=== PATIENT | female | born 2005 | race Caucasian/White ===

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

== ENCOUNTER 2023-02-02 12:39 | Emergency (ER) | payer OTHER, MEDICAID, SELFPAY ==
[2023-02-02 12:57] VITALS: BP 113/65; PULSE 73; RESP 16; TEMP 36.6; O2SAT 100
--- NOTE | 2023-02-04 19:20 | ED.FEMALEGU ---
HPI - Female Genitourinary General Chief complaint: Urogenital-Female Stated complaint: Female Urogenital Time Seen by Provider: 02/02/23 13:00 Source: patient Mode of arrival: ambulatory Limitations: no limitations History of Present Illness HPI Narrative: 17 yo F presents with c/o urinary urgency, frequency, dysuria for 2 days. Afebrile. No back or ABD pain. Also reports mild nausea. concerned for UTI. All systems reviewed and negative except as noted above. Related Data Home Medications Medication Instructions Recorded Confirmed desogestrel 0.15 mg-ethinyl 1 tablet PO DAILY 07/02/20 02/02/23 estradiol 0.03 mg tablet (Isibloom) dextroamphetamine-amphetamine ER 25 mg PO DAILY 07/02/20 02/02/23 25 mg capsule,3 bead,ext release 24hr (Mydayis) paliperidone 1.5 mg 1.5 mg PO DAILY 07/10/20 02/02/23 tablet,extended release 24 hr aripiprazole 5 mg tablet 5 mg PO DAILY 01/17/21 02/02/23 bupropion HCl 100 mg tablet,12 hr 100 mg PO DAILY 01/17/21 02/02/23 sustained-release Allergies Allergy/AdvReac Type Severity Reaction Status Date / Time cefdinir AdvReac Intermediate Diarrhea Verified 02/02/23 12:45 Review of Systems Review of Systems: CONSTITUTIONAL: Denies fever, chills, or sweats. EYES: Denies visual changes, redness, or discharge. ENT: Denies rhinorrhea, congestion, sore throat, or otalgia. CARDIOVASCULAR: Denies chest pain, palpitations, or edema. RESPIRATORY: Denies cough or dyspnea. GASTROINTESTINAL: Denies abdominal pain, nausea, vomiting, or diarrhea. GENITOURINARY: reports dysuria, urgency, frequency. Denies hematuria. SKIN: Denies rash or itching. MUSCULOSKELETAL: Denies back pain, joint pain, or myalgia. NEUROLOGIC: Denies headache, numbness, or weakness. PSYCHIATRIC: Denies anxiety or depression. All other systems reviewed are negative, except as documented in HPI. [facility] Past Medical History Medical History Outbursts of anger Social History Social History Smoking status: Never smoker Substance use type: marijuana, sedatives and club/data designer drugs Comments At time of signature, agree with nursing past medical, surgical, social and family history. There is no relevant family history pertinent to the presenting complaint. Exam Narrative: GENERAL: This is a well-nourished, well-developed patient, in no apparent distress. HEAD: normocephalic, atraumatic. EYES: PERRL. Sclera clear/white. Vision is grossly intact. EARS: External ears normal NOSE: External nose normal NECK: Neck supple, non-tender without lymphadenopathy, masses or thyromegaly. CARDIOVASCULAR: Regular rate and rhythm without murmurs, gallops, or rubs. RESPIRATORY: Clear to auscultation. Breath sounds equal bilaterally. No wheezes, rales, or rhonchi. SKIN: warm, Dry, intact with no suspicious lesions or rash, good texture and turgor. NEURO: awake, alert, and oriented to person, place and time. There were no obvious focal neurologic abnormalities. EXTREMITIES: No joint tenderness, effusion, or edema noted. Course Course Level of Care: Express Care Visit Vital Signs Vital signs: Vital Signs Temperature 36.6 C 02/02/23 12:57 Pulse Rate 73 02/02/23 12:57 Respiratory Rate 16 02/02/23 12:57 Blood Pressure 113/65 02/02/23 12:57 Pulse Oximetry 100 02/02/23 12:57 Oxygen Delivery Room Air 02/02/23 12:57 Temperature 36.6 C 02/02/23 12:57 Pulse Rate 73 02/02/23 12:57 Respiratory Rate 16 02/02/23 12:57 Blood Pressure 113/65 02/02/23 12:57 Pulse Oximetry 100 02/02/23 12:57 Oxygen Delivery Room Air 02/02/23 12:57 reviewed MDM - Female Genitourinary MDM Narrative Medical decision making narrative: Patient is aware of diagnosis, understands and agrees to treatment plan. Anticipatory guidance given. Patient agrees to follow-up as directed and is aware of
== END 2023-02-02 13:16 | disposition home or self-care (01) ==
PROVIDERS: Emergency Provider Nurse Practitioner Family
DX: N39.0 Urinary tract infection, site not specified (principal); B96.20 Unspecified Escherichia coli [E. coli] as the cause of diseases classified elsewhere; F12.90 Cannabis use, unspecified, uncomplicated; F13.90 Sedative, hypnotic, or anxiolytic use, unspecified, uncomplicated
CPT/HCPCS: 81003; 87077; 87086; 87186; 99213; G0463

== ENCOUNTER 2023-07-19 08:02 | Emergency (ER) | payer OTHER, SELFPAY ==
--- NOTE | 2023-07-19 08:09 | ED.FEMALEGU ---
HPI - Female Genitourinary General Chief complaint: Urogenital-Female Stated complaint: uti symptoms Time Seen by Provider: 07/19/23 08:25 Source: patient, RN notes reviewed and old records reviewed Mode of arrival: ambulatory Limitations: no limitations History of Present Illness HPI Narrative: 18 Old female presents to the [facility] with concerns for a UTI. Patient reports left lower back discomfort, intermittent nausea, urgency with urination, feeling like she cannot empty her bladder. Last menstrual period was 2 weeks ago, no concerns for . Patient denies any concerns for STDs. Symptoms started yesterday. Denies fevers, abdominal pain Onset (ago): day(s) (1) Related Data Home Medications Medication Instructions Recorded Confirmed desogestrel 0.15 mg-ethinyl 1 tablet PO DAILY 07/02/20 07/19/23 estradiol 0.03 mg tablet (Isibloom) bupropion HCl 100 mg tablet,12 hr 100 mg PO DAILY 01/17/21 07/19/23 sustained-release paliperidone 1.5 mg 1.5 mg PO DAILY 07/19/23 07/19/23 tablet,extended release 24 hr Allergies Allergy/AdvReac Type Severity Reaction Status Date / Time cefdinir AdvReac Intermediate Diarrhea Verified 07/19/23 08:13 Review of Systems Review of Systems: All systems reviewed & are unremarkable except as noted in HPI and below Constitutional: Constitutional: Reports no additional constitutional complaints Eyes: Eyes: Reports no additional eye complaints ENT: Reports system reviewed and no additional complaints, except as documented Cardiovascular: Cardiovascular: Reports no additional cardiovascular complaints, Denies chest pain and Denies dyspnea Respiratory: Respiratory: Reports no additional respiratory complaints, Denies chest congestion, Denies cough and Denies dyspnea Gastrointestinal: Gastrointestinal: Reports no additional gastrointestinal complaints, Denies abdominal pain, Denies nausea and Denies vomiting Genitourinary: Genitourinary: Reports as per HPI and Reports dysuria Musculoskeletal: Musculoskeletal: Reports no additional musculoskeletal complaints Integumentary/Breasts: Skin/Breast: Reports system reviewed and no additional complaints, except as docu Neurologic: Reports system reviewed and no additional complaints, except as documented Psychiatric: Psychiatric: Reports no additional psychiatric complaints Allergic/Immunologic: Allergic/Immunologic: Reports no additional allergic/immunologic complaints PMFSH Past Medical History Medical History Outbursts of anger Social History Social History Smoking status: Never smoker Substance use type: marijuana, sedatives and club/kitchen and bath designer drugs Comments At the time of my signature, I reviewed and agree with the nursing past medical, surgical, social, and family history. There is no relevant family history pertinent to the patient complaint. Exam Const: General: cooperative, healthy appearing, comfortable, no acute distress, well developed, alert and well nourished Nutritional Appearance: well nourished Orientation/consciousness: patient oriented x3 Limitations: no limitations HENMT: Head: normal to inspection Ears: hearing grossly normal bilaterally and external ears normal Face/Nose/Sinus: Normal external nose present, Normal nares present, Normal nasal mucous membranes and turbinates present, normal facial exam and face symmetric Face and sinus: normal facial exam and face symmetric Eyes: General: appearance normal, both eyes and all related structures Alignment and Position: alignment normal Periorbital: periorbital findings normal Pupils: Equal, round and reactive pupils present EOM: EOMs intact bilaterally Neck: Neck: normal visual inspection, full ROM, no lymphadenopathy and no meningeal signs Chest: Chest palpation & inspection: normal inspection of the chest Resp: Effort & Inspection: no
[2023-07-19 08:22] VITALS: BP 108/57; PULSE 91; RESP 16; TEMP 37.5; O2SAT 100
== END 2023-07-19 08:40 | disposition home or self-care (01) ==
PROVIDERS: Emergency Provider Nurse Practitioner
DX: N39.0 Urinary tract infection, site not specified (principal); B96.20 Unspecified Escherichia coli [E. coli] as the cause of diseases classified elsewhere
CPT/HCPCS: 81003; 87077; 87086; 87186; 99213; G0463

== ENCOUNTER 2024-02-15 09:49 | Emergency (ER) | payer OTHER, SELFPAY ==
--- NOTE | 2024-02-15 09:52 | ED_ITS ---
HPI - Psych General Chief Complaint: Psychiatric Symptoms Stated Complaint: si/hi statements after argument Time Seen by Provider: 02/15/24 09:51 History of Present Illness HPI Narrative: Patient has history of bipolar disorder, has been off her meds since May, and had an argument with her family earlier today resulting her making statements about wanting the kill herself, take a gun and shoot someone. She has no denying any SI or HI and states It was just in the heat of the moment. No access to guns. denies any other complaints. Related Data Home Medications Medication Instructions Recorded Confirmed bupropion HCl 100 mg tablet,12 hr 100 mg PO DAILY 01/17/21 02/15/24 sustained-release aripiprazole 10 mg tablet 10 mg PO DAILY 02/15/24 02/15/24 Allergies Allergy/AdvReac Type Severity Reaction Status Date / Time cefdinir AdvReac Intermediate Diarrhea Verified 02/15/24 14:29 Review of Systems Review of Systems: All systems reviewed & are unremarkable except as noted in HPI and below PMFSH Past Medical History Medical History Outbursts of anger Social History Social History Smoking status: Never smoker Substance use type: marijuana, sedatives and club/user experience designer drugs Exam Narrative: EXAMINATION OF ORGAN SYSTEMS/BODY AREAS: Constitutional: Vital signs per nursing GENERAL:[No acute distress, non-toxic appearing.] HEAD: Normal with no signs of head trauma. EYES: EOMI, conjunctiva normal ENT: Hearing grossly intact LUNGS: Nonlabored breathing. HEART: [Regular rate and rhythm] ABD: [Soft], [nontender to palpation] EXT: Normal range of motion SKIN: [No rashes or lesions.] NEURO: [Alert and oriented x 3. No gross focal sensory or strength deficits.] PSYCH: Normal affect; Denies SI or HI Course Vital Signs Vital signs: Vital Signs Temperature 98.4 F 02/15/24 10:01 Pulse Rate 74 02/15/24 10:01 Respiratory Rate 18 02/15/24 10:01 Blood Pressure 105/62 02/15/24 10:01 Pulse Oximetry 100 02/15/24 10:01 Oxygen Delivery Room Air 02/15/24 10:01 Temperature 98.4 F 02/15/24 10:01 Pulse Rate 69 02/15/24 14:00 Respiratory Rate 18 02/15/24 14:00 Blood Pressure 110/62 02/15/24 14:00 Pulse Oximetry 100 02/15/24 14:00 Oxygen Delivery Room Air 02/15/24 10:01 MDM - Psych MDM Narrative Medical decision making narrative: Patient has history of bipolar disorder, has been off her meds since May, and had an argument with her family earlier today resulting her making statements about wanting the kill herself, take a gun and shoot someone. She has no denying any SI or HI and states It was just in the heat of the moment. No access to guns. denies any other complaints. patient very well-appearing here. We will dutifully obtain labs for crisis evaluation. Does appear to have UTI which I will start treatment here for. medical clear for crisis evaluation. // assessed by crisis, they feel she is stable for discharge at this time a CT plan and return precautions, follow-up to [place] provided. Lab Data 02/15/24 09:56 02/15/24 09:56 Labs: Lab Results 02/15/24 02/15/24 02/15/24 Range/Units 09:56 10:04 13:15 WBC 7.6 (4.5-10.0) K/mm3 RBC 4.26 (4.2-5.4) M/mm3 Hgb 10.9 L (12.0-15.0) g/dL Hct 34.6 L (37.0-47.0) % MCV 81.2 (80-100) fl MCH 25.6 L (26-34) pg MCHC 31.5 L (32-36) g/dl RDW 15.9 H (11.5-14.5) % Plt Count 213 (150-375) k/mm3 MPV 9.6 (7.4-10.4) fl Immature Gran % (Auto) 0.4 (0-0.5) % Neut % (Auto) 63.6 (45.5-73.1) % Lymph % (Auto) 26.3 (18.3-44.2) % [place] % (Auto) 7.9 (2.6-8.5) % Eos % (Auto) 1.4 (0-4.4) % Baso % (Auto) 0.4 (0.2-1.2) % Lymph # (Auto) 2.01 (0.9-3.2) K/mm3 [place] # (Auto) 0.6 (0.1-0.6) K/mm3 Eos # (Auto) 0.1 (0-0.3) K/mm3 Baso # (Auto) 0.0 (0.0-0.1) K/mm3 Abs Immat Gran (auto) 0.03 (0.00-0.031) K/mm3 Absolute Neuts (auto) 4.9 (1.3-6.7) K/mm3 Absolute Nucleated RBC 0.000 (0.0-0.012) K/mm3 Nucleated RBC % 0.0 (0.0-0.2) % Sodium 141 (137-145) mmol/L Potassium 3.6 (3.4-5.0) mmol/L Chloride 107 (98-107) mmol/L Carbon Dioxide 24 (22-30) mmol/L Anion Gap 10 (4-12) mmol/L BUN 11 (7-17) mg/dL Creatinine 0.60 L (0.7-1.0) mg/dL Estim Creat Clear Calc 90 ml/min Estimated GFR > 60 (59 - ) Glucose 89 (65-110) mg/dL Calcium 9.2 (8.4-10.2) mg/dL Total Bilirubin 0.5 (0.2-1.3) mg/dL AST 23 (14-36) U/L ALT 12 (6-35) U/L Alkaline Phosphatase 58 (38-126) U/L Total Protein 8.0 (6.3-8.2) g/dL Albumin 4.3 (3.5-5.1) g/dL TSH 0.315 L (0.465-4.680) uIU/mL Urine Color Yellow (Yellow) Urine Appearance Cloudy H (Clear) Urine pH 6.5 (5.0-9.0) Ur Specific [place] 1.022 (1.001-1.035) Urine Protein Negative (Negative) mg/dL Urine Glucose (UA) Negative (Negative) mg/dL Urine Ketones 1+ H (Negative) mg/dL Ur Blood (Man) Negative (Negative) Urine Nitrate Negative (Negative) Urine Bilirubin Negative (Negative) Urine Urobilinogen 0.2 (<2.0) mg/dL Leukocyte Esterase Rfl 2+ H (Negative) RAFAEL/UL Urine RBC 0-2 (0-2) /hpf Urine WBC 21-50 H (0-3) /hpf Ur Squamous Epith Cells Moderate (Few) /hpf Urine Bacteria 1+ H /hpf Urine Casts 0-2 Urine Test Negative Salicylates < 1.0 L (2-20) mg/dL Urine Opiates Screen Negative (Negative) Urine Methadone Screen Negative (Negative) Acetaminophen < 10 L (10-30) ug/mL Ur Barbiturates Screen Negative (Negative) Ur Phencyclidine Scrn Negative (Negative) Ur Amphetamine Screen Negative (Negative) U Benzodiazepines Scrn Negative (Negative) Urine Cocaine Screen Negative (Negative) U Cannabinoids Screen Positive A (Negative) Ethyl Alcohol < 10 (<10) mg/dL Influenza A (RT-PCR) Negative (Negative) Influenza B (RT-PCR) Negative (Negative) RSV (RT-PCR) Negative (Negative) SARS-CoV-2 RNA (RT-PCR) Negative (Negative) Discharge Plan Discharge Clinical Impression: Outbursts of anger Patient Disposition: Home, Self-Care Condition: Stable Instructions: Urinary Tract Infection in Women (ED), Bipolar Disorder (ED) Additional Instructions: Please follow up with [facility]; you can always return for any further issues, especially if you have thoughts about hurting yourself or anyone else. Prescriptions: New aripiprazole [Abilify] 10 mg tablet 10 mg PO DAILY Qty: 30 0RF nitrofurantoin monohyd/m-cryst [Macrobid] 100 mg capsule 100 mg PO Q12H 5 Days Qty: 10 0RF Rx Instructions: must administer with a meal/food No Action bupropion HCl 100 mg tablet sustained-release 12 hr 100 mg PO DAILY aripiprazole 10 mg tablet 10 mg PO DAILY Follow-up/Referrals: [facility] [Outside] - 2 Days [facility] [Outside] - 2 Days PHYSICIAN,[facility]OC[facility] [Non-Staff] -
[2024-02-15 10:01] VITALS: BP 105/62; PULSE 74; RESP 18; TEMP 36.9; O2SAT 100
[2024-02-15 10:02] LABS: Basophils Percent Auto 0.4 % (0.2-1.2); Eosinophils Absolute Auto 0.1 K/mm3 (0-0.3); Eosinophils Percent Auto 1.4 % (0-4.4); Hematocrit 34.6 % (37.0-47.0); Hemoglobin 10.9 g/dL (12.0-15.0); Immature Granulocyte Absolute 0.03 K/mm3 (0.00-0.031); Immature Granulocyte Percent A 0.4 % (0-0.5); Lymphocytes Absolute Auto 2.01 K/mm3 (0.9-3.2); Lymphocytes Percent Auto 26.3 % (18.3-44.2); Mean Corpuscular HGB Conc 31.5 g/dl (32-36); Mean Corpuscular Hemoglobin 25.6 pg (26-34); Mean Corpuscular Volume 81.2 fl (80-100); Mean Platelet Volume 9.6 fl (7.4-10.4); Monocytes Absolute Auto 0.6 K/mm3 (0.1-0.6); Monocytes Percent Auto 7.9 % (2.6-8.5); Neutrophils Absolute Auto 4.9 K/mm3 (1.3-6.7); Neutrophils Percent Auto 63.6 % (45.5-73.1); Platelet Count Result 213 k/mm3 (150-375); Red Blood Count 4.26 M/mm3 (4.2-5.4); Red Cell Distribution Width 15.9 % (11.5-14.5); White Blood Count 7.6 K/mm3 (4.5-10.0)
[2024-02-15 10:15] LABS: Alanine Aminotransferase 12 U/L (6-35); Albumin Level 4.3 g/dL (3.5-5.1); Alkaline Phosphatase 58 U/L (38-126); Anion Gap 10 mmol/L (4-12); Aspartate Amino Transferase 23 U/L (14-36); Bilirubin,Total 0.5 mg/dL (0.2-1.3); Blood Urea Nitrogen 11 mg/dL (7-17); Calcium 9.2 mg/dL (8.4-10.2); Carbon Dioxide 24 mmol/L (22-30); Chloride 107 mmol/L (98-107); Estimated CRCL calculation 90 ml/min; Estimated Glomerular Filt Rate > 60; Glucose 89 mg/dL (65-110); Potassium 3.6 mmol/L (3.4-5.0); Sodium 141 mmol/L (137-145)
[2024-02-15 10:18] LABS: Add Urine Microscopic? YES; Appearance Urine Cloudy (Clear); Bacteria Urine 1+ /hpf; Bilirubin Urine Negative (Negative); Blood Urine Negative (Negative); Color Urine Yellow (Yellow); Glucose Urine UA Negative (Negative); Ketones Urine 1+ mg/dL (Negative); Leukocyte Esterase Ur 2+ LEU/UL (Negative); Nitrate Urine Negative (Negative); Non Pathogenic Casts 0-2; Protein Urine Negative (Negative); RBC Urine 0-2 /hpf (0-2); Specific Grav Ur 1.022 (1.001-1.035); Squamous Epithelial Cell Urine Moderate /hpf (Few); Urobilinogen Urine 0.2 mg/dL (<2.0); WBC Urine 21-50 /hpf (0-3); pH Urine 6.5 (5.0-9.0)
[2024-02-15 10:35] LABS: Pregnancy On Board Control Positive; Urine Pregnancy Test Negative
[2024-02-15 10:46] LABS: Thyroid Stimulating Hormone 0.315 uIU/mL (0.465-4.680)
[2024-02-15] MEDS: NITROFURANTOIN MONOHYD MACROCR 100 MG CAP PO (10:55)
[2024-02-15 11:08] LABS: Amphetamine Screen Urine Negative (Negative); Barbiturate Screen Urine Negative (Negative); Benzodiazepines Screen Urine Negative (Negative); Cannabinoid Screen Urine Positive (Negative); Cocaine Screen Urine Negative (Negative); Methadone Screen Urine Negative (Negative); Opiate Screen Urine Negative (Negative); Phencyclidine Screen Urine Negative (Negative)
--- NOTE | 2024-02-15 11:25 | PC.NURSE ---
pt ambulated out of EMS doors. pt had a verbal spar with ED Registration about consenting for treatment. pt left room stating I can refuse if I want to attempts made to curtail pt prior to leaving were unsuccessful. Dawna LI called and informed EDP made aware
--- NOTE | 2024-02-15 11:47 | PC.NURSE ---
Pt returns to room via PD. Pt calm and cooperative at this time. Sitter placed at bedside due to pt being an elopement risk
[2024-02-15 12:01] LABS: Acetaminophen < 10 ug/mL (10-30); Ethanol < 10 mg/dL (<10); Salicylate < 1.0 mg/dL (2-20)
[2024-02-15 14:00] VITALS: BP 110/62; PULSE 69; RESP 18; O2SAT 100
[2024-02-15 14:04] LABS: Influenza A QL RT-PCR Negative (Negative); Influenza B QL RT-PCR Negative (Negative); RSV RNA, RT-PCR Negative (Negative); SARS-CoV-2 RNA PCR Negative (Negative)
== END 2024-02-15 15:13 | disposition home or self-care (01) ==
PROVIDERS: Emergency Provider Emergency Medicine
DX: R45.4 Irritability and anger (principal); F31.9 Bipolar disorder, unspecified; Z11.52 Encounter for screening for COVID-19; T43.596A Underdosing of other antipsychotics and neuroleptics, initial encounter
CPT/HCPCS: 36415; 80053; 80143; 80179; 80307; 81001; 81025; 82077; 84443; 85025; 87637; 99284; A9270

== ENCOUNTER 2024-02-19 12:34 | Emergency (ER) | payer OTHER, SELFPAY ==
[2024-02-19 12:34] VITALS: BP 90/62; PULSE 75; RESP 19; TEMP 36.3; O2SAT 98
--- NOTE | 2024-02-19 12:35 | ECG_ITS ---
Test Date: 2024-02-19 12:45:50 Measurements Intervals [place] Rate: 74 P: 38 DC: 159 QRS: 68 QRSD: 83 T: 8 QT: 417 QTc: 465 Interpretive Statements SINUS RHYTHM WITH OCCASIONAL SUPRAVENTRICULAR PREMATURE COMPLEXES BORDERLINE ST-T WAVE ABNORMALITY- ANT/INF LEADS BORDERLINE ECG No previous ECG available for comparison Electronically Signed On 02-19-2024 18:37:03 [employer] by Yuan Porras D.O.
--- NOTE | 2024-02-19 13:00 | ED_ITS ---
HPI - General Adult General Chief complaint: Psychiatric Symptoms Stated complaint: psych History of Present Illness HPI narrative: 18-year-old female presenting to the emergency department for evaluation for psychiatric evaluation. Patient did make suicidal statements to both her paren ts and the police. Patient states that she wanted to obtain a firearm and 2 shoot herself in front of her parents. Patient denies taking any medications to harm herself. Patient denies any other ways of self-harm. Patient states she is still suicidal. Patient was combative at the scene and was treated with 5 of Haldol and 5 of Valium Related Data Home Medications Medication Instructions Recorded Confirmed bupropion HCl 100 mg tablet,12 hr 100 mg PO DAILY 01/17/21 02/15/24 sustained-release aripiprazole 10 mg tablet 10 mg PO DAILY 02/15/24 02/15/24 Allergies Allergy/AdvReac Type Severity Reaction Status Date / Time cefdinir AdvReac Intermediate Diarrhea Verified 02/19/24 12:58 Review of Systems Review of Systems: All systems reviewed & are unremarkable except as noted in HPI and below PMFSH Past Medical History Medical History Outbursts of anger Social History Social History Smoking status: Never smoker Substance use type: marijuana Exam Narrative: APPEARANCE: Well appearing, no pain, no distress, well-nourished. HEAD: normocephalic, atraumatic. EYES: PERRLA/EOMI, conjunctivae clear. NOSE: Normal no drainage EARS:TMS clear with good light reflex. THROAT: Pharynx clear, no exudate. NECK: Supple. No adenopathy, no masses. RESPIRATORY: Airway patent, respirations nonlabored. Clear to auscultation bilaterally, no rales, rhonchi, wheezing. CARDIOVASCULAR: Regular rate and rhythm without murmurs rubs or gallops. ABDOMINAL: Soft, nontender, nondistended, normal bowel sounds MUSCULOSKELETAL: Moves all extremities. Strength/ROM intact, No edema, No calf tenderness. NEURO: Alert. Cranial nerves II through XII intact. Grossly intact SKIN: Warm, dry. Normal Color Course Vital Signs Vital signs: Vital Signs Temperature 97.3 F L 02/19/24 12:34 Pulse Rate 75 02/19/24 12:34 Respiratory Rate 19 02/19/24 12:34 Blood Pressure 90/62 L 02/19/24 12:34 Pulse Oximetry 98 02/19/24 12:34 Oxygen Delivery Room Air 02/19/24 12:34 Temperature 97.3 F L 02/19/24 12:34 Pulse Rate 55 L 02/19/24 14:01 Respiratory Rate 13 02/19/24 14:01 Blood Pressure 92/57 L 02/19/24 14:01 Pulse Oximetry 100 02/19/24 14:01 Oxygen Delivery Room Air 02/19/24 12:34 Medical Decision Making MDM Narrative Medical decision making narrative: 18-year-old female presents to the emergency department for evaluation after making suicidal statements to her parents. Patient was medically cleared and was evaluated by a crisis. Crisis did not feel that the patient's statements meet qualified for inpatient psychiatric placement. Patient declined voluntary placement. Patient initially stated she was homeless, then stated that she does have a place that she can stay. Care coordination was consulted and patient was provided additional information for homeless shelters. Patient was in no distress Differential Diagnosis Differential Diagnosis: Agitation, suicidal, homelessness Vital Signs Vital Signs: Vital Signs Temperature 97.3 F L 02/19/24 12:34 Pulse Rate 75 02/19/24 12:34 Respiratory Rate 19 02/19/24 12:34 Blood Pressure 90/62 L 02/19/24 12:34 Pulse Oximetry 98 02/19/24 12:34 Oxygen Delivery Room Air 02/19/24 12:34 Temperature 97.3 F L 02/19/24 12:34 Pulse Rate 55 L 02/19/24 14:01 Respiratory Rate 13 02/19/24 14:01 Blood Pressure 92/57 L 02/19/24 14:01 Pulse Oximetry 100 02/19/24 14:01 Oxygen Delivery Room Air 02/19/24 12:34 Lab Data Lab results reviewed: Yes I reviewed the patient's lab results. 02/19/24 12:54 02/19/24 12:54 Labs: Lab Results 02/19/24 02/19/24 02/19/24 Range/Units 12:54 12:56 14:24 WBC 7.4 (4.5-10.0) K/mm3 RBC 3.88 L (4.2-5.4) M/mm3 Hgb 10.1 L (12.0-15.0) g/dL Hct 32.0 L (37.0-47.0) % MCV 82.5 (80-100) fl MCH 26.0 (26-34) pg MCHC 31.6 L (32-36) g/dl RDW 16.2 H (11.5-14.5) % Plt Count 185 (150-375) k/mm3 MPV 10.6 H (7.4-10.4) fl Immature Gran % (Auto) 0.3 (0-0.5) % Neut % (Auto) 64.3 (45.5-73.1) % Lymph % (Auto) 25.0 (18.3-44.2) % Leon % (Auto) 6.3 (2.6-8.5) % Eos % (Auto) 4.0 (0-4.4) % Baso % (Auto) 0.1 L (0.2-1.2) % Lymph # (Auto) 1.86 (0.9-3.2) K/mm3 Leon # (Auto) 0.5 (0.1-0.6) K/mm3 Eos # (Auto) 0.3 (0-0.3) K/mm3 Baso # (Auto) 0.0 (0.0-0.1) K/mm3 Abs Immat Gran (auto) 0.02 (0.00-0.031) K/mm3 Absolute Neuts (auto) 4.8 (1.3-6.7) K/mm3 Absolute Nucleated RBC 0.000 (0.0-0.012) K/mm3 Nucleated RBC % 0.0 (0.0-0.2) % Sodium 139 (137-145) mmol/L Potassium 3.1 L (3.4-5.0) mmol/L Chloride 106 (98-107) mmol/L Carbon Dioxide 25 (22-30) mmol/L Anion Gap 8 (4-12) mmol/L BUN 9 (7-17) mg/dL Creatinine 0.60 L (0.7-1.0) mg/dL Estim Creat Clear Calc 101 ml/min Estimated GFR > 60 (59 - ) Glucose 96 (65-110) mg/dL Calcium 8.8 (8.4-10.2) mg/dL Magnesium 1.5 L (1.6-2.3) mg/dL Total Bilirubin 0.4 (0.2-1.3) mg/dL AST 25 (14-36) U/L ALT 11 (6-35) U/L Alkaline Phosphatase 62 (38-126) U/L Total Protein 7.0 (6.3-8.2) g/dL Albumin 3.7 (3.5-5.1) g/dL TSH 0.768 (0.465-4.680) uIU/mL Urine Color Yellow (Yellow) Urine Appearance Clear (Clear) Urine pH 8.5 (5.0-9.0) Ur Specific [place] 1.007 (1.001-1.035) Urine Protein Negative (Negative) mg/dL Urine Glucose (UA) Negative (Negative) mg/dL Urine Ketones Negative (Negative) mg/dL Ur Blood (Man) 3+ H (Negative) Urine Nitrate Negative (Negative) Urine Bilirubin Negative (Negative) Urine Urobilinogen 0.2 (<2.0) mg/dL Leukocyte Esterase Rfl Trace H (Negative) RAFAEL/UL Urine RBC >100 H (0-2) /hpf Urine WBC 6-10 H (0-3) /hpf Ur Squamous Epith Cells Occasional (Few) /hpf Urine Bacteria None seen /hpf Urine Casts 0-2 POC Urine HCG, Qual (Negative) Salicylates < 1.0 L (2-20) mg/dL Urine Opiates Screen Negative (Negative) Urine Methadone Screen Negative (Negative) Acetaminophen < 10 L (10-30) ug/mL Ur Barbiturates Screen Negative (Negative) Ur Phencyclidine Scrn Negative (Negative) Ur Amphetamine Screen Negative (Negative) U Benzodiazepines Scrn Positive A (Negative) Urine Cocaine Screen Negative (Negative) U Cannabinoids Screen Positive A (Negative) Ethyl Alcohol < 10 (<10) mg/dL Influenza A (RT-PCR) Negative (Negative) Influenza B (RT-PCR) Negative (Negative) RSV (RT-PCR) Negative (Negative) SARS-CoV-2 RNA (RT-PCR) Negative (Negative) 02/19/24 Range/Units 14:36 WBC (4.5-10.0) K/mm3 RBC (4.2-5.4) M/mm3 Hgb (12.0-15.0) g/dL Hct (37.0-47.0) % MCV (80-100) fl MCH (26-34) pg MCHC (32-36) g/dl RDW (11.5-14.5) % Plt Count (150-375) k/mm3 MPV (7.4-10.4) fl Immature Gran % (Auto) (0-0.5) % Neut % (Auto) (45.5-73.1) % Lymph % (Auto) (18.3-44.2) % Leon % (Auto) (2.6-8.5) % Eos % (Auto) (0-4.4) % Baso % (Auto) (0.2-1.2) % Lymph # (Auto) (0.9-3.2) K/mm3 Leon # (Auto) (0.1-0.6) K/mm3 Eos # (Auto) (0-0.3) K/mm3 Baso # (Auto) (0.0-0.1) K/mm3 Abs Immat Gran (auto) (0.00-0.031) K/mm3 Absolute Neuts (auto) (1.3-6.7) K/mm3 Absolute Nucleated RBC (0.0-0.012) K/mm3 Nucleated RBC % (0.0-0.2) % Sodium (137-145) mmol/L Potassium (3.4-5.0) mmol/L Chloride (98-107) mmol/L Carbon Dioxide (22-30) mmol/L Anion Gap (4-12) mmol/L BUN (7-17) mg/dL Creatinine (0.7-1.0) mg/dL Estim Creat Clear Calc ml/min Estimated GFR (59 - ) Glucose (65-110) mg/dL Calcium (8.4-10.2) mg/dL Magnesium (1.6-2.3) mg/dL Total Bilirubin (0.2-1.3) mg/dL AST (14-36) U/L ALT (6-35) U/L Alkaline Phosphatase (38-126) U/L Total Protein (6.3-8.2) g/dL Albumin (3.5-5.1) g/dL TSH (0.465-4.680) uIU/mL Urine Color (Yellow) Urine Appearance (Clear) Urine pH (5.0-9.0) Ur Specific [place] (1.001-1.035) Urine Protein (Negative) mg/dL Urine Glucose (UA) (Negative) mg/dL Urine Ketones (Negative) mg/dL Ur Blood (Man) (Negative) Urine Nitrate (Negative) Urine Bilirubin (Negative) Urine Urobilinogen (<2.0) mg/dL Leukocyte Esterase Rfl (Negative) RAFAEL/UL Urine RBC (0-2) /hpf Urine WBC (0-3) /hpf Ur Squamous Epith Cells (Few) /hpf Urine Bacteria /hpf Urine Casts POC Urine HCG, Qual Negative (Negative) Salicylates (2-20) mg/dL Urine Opiates Screen (Negative) Urine Methadone Screen (Negative) Acetaminophen (10-30) ug/mL Ur Barbiturates Screen (Negative) Ur Phencyclidine Scrn (Negative) Ur Amphetamine Screen (Negative) U Benzodiazepines Scrn (Negative) Urine Cocaine Screen (Negative) U Cannabinoids Screen (Negative) Ethyl Alcohol (<10) mg/dL Influenza A (RT-PCR) (Negative) Influenza B (RT-PCR) (Negative) RSV (RT-PCR) (Negative) SARS-CoV-2 RNA (RT-PCR) (Negative) ECG Data EKG #1: EKG Interpretation: normal rate, atrial fibrillation, non-specific ST changes, normal QRS, normal QT and NL axis Discharge Plan Discharge Clinical Impression: Outbursts of anger, Agitation, Suicidal risk Patient Disposition: Home, Self-Care Condition: Stable Instructions: Antibiotic Form Additional Instructions: Have close follow-up with your primary care physician. If you do not feel safe then please call or return to the emergency department. Prescriptions: No Action bupropion HCl 100 mg tablet sustained-release 12 hr 100 mg PO DAILY aripiprazole 10 mg tablet 10 mg PO DAILY aripiprazole [Abilify] 10 mg tablet 10 mg PO DAILY Qty: 30 0RF nitrofurantoin monohyd/m-cryst [Macrobid] 100 mg capsule 100 mg PO Q12H 5 Days Qty: 10 0RF Rx Instructions: must administer with a meal/food Follow-up/Referrals: UNKNOWN,DOCTOR [Primary Care Provider] -
[2024-02-19 13:01] VITALS: BP 90/58; PULSE 75; RESP 14; O2SAT 99
[2024-02-19 13:02] LABS: Basophils Percent Auto 0.1 % (0.2-1.2); Eosinophils Absolute Auto 0.3 K/mm3 (0-0.3); Hemoglobin 10.1 g/dL (12.0-15.0); Immature Granulocyte Absolute 0.02 K/mm3 (0.00-0.031); Immature Granulocyte Percent A 0.3 % (0-0.5); Lymphocytes Absolute Auto 1.86 K/mm3 (0.9-3.2); Mean Corpuscular HGB Conc 31.6 g/dl (32-36); Mean Corpuscular Volume 82.5 fl (80-100); Mean Platelet Volume 10.6 fl (7.4-10.4); Monocytes Absolute Auto 0.5 K/mm3 (0.1-0.6); Monocytes Percent Auto 6.3 % (2.6-8.5); Neutrophils Absolute Auto 4.8 K/mm3 (1.3-6.7); Neutrophils Percent Auto 64.3 % (45.5-73.1); Platelet Count Result 185 k/mm3 (150-375); Red Blood Count 3.88 M/mm3 (4.2-5.4); Red Cell Distribution Width 16.2 % (11.5-14.5); White Blood Count 7.4 K/mm3 (4.5-10.0)
[2024-02-19 13:13] LABS: Acetaminophen < 10 ug/mL (10-30); Ethanol < 10 mg/dL (<10); Salicylate < 1.0 mg/dL (2-20)
[2024-02-19 13:23] LABS: Alanine Aminotransferase 11 U/L (6-35); Albumin Level 3.7 g/dL (3.5-5.1); Alkaline Phosphatase 62 U/L (38-126); Anion Gap 8 mmol/L (4-12); Aspartate Amino Transferase 25 U/L (14-36); Bilirubin,Total 0.4 mg/dL (0.2-1.3); Blood Urea Nitrogen 9 mg/dL (7-17); Calcium 8.8 mg/dL (8.4-10.2); Carbon Dioxide 25 mmol/L (22-30); Chloride 106 mmol/L (98-107); Estimated CRCL calculation 101 ml/min; Estimated Glomerular Filt Rate > 60; Glucose 96 mg/dL (65-110); Magnesium 1.5 mg/dL (1.6-2.3); Potassium 3.1 mmol/L (3.4-5.0); Sodium 139 mmol/L (137-145)
[2024-02-19 13:31] VITALS: BP 89/54; PULSE 61; RESP 13; O2SAT 100
[2024-02-19 13:38] LABS: Influenza A QL RT-PCR Negative (Negative); Influenza B QL RT-PCR Negative (Negative); RSV RNA, RT-PCR Negative (Negative); SARS-CoV-2 RNA PCR Negative (Negative)
--- NOTE | 2024-02-19 13:43 | PC.NURSE ---
pt attempted to urinate and was unsuccessful.
[2024-02-19 13:54] LABS: Thyroid Stimulating Hormone 0.768 uIU/mL (0.465-4.680)
[2024-02-19 14:01] VITALS: BP 92/57; PULSE 55; RESP 13; O2SAT 100
[2024-02-19 14:34] LABS: Add Urine Microscopic? YES; Appearance Urine Clear (Clear); Bacteria Urine None Seen /hpf; Bilirubin Urine Negative (Negative); Blood Urine 3+ (Negative); Color Urine Yellow (Yellow); Glucose Urine UA Negative (Negative); Ketones Urine Negative (Negative); Leukocyte Esterase Ur Trace LEU/UL (Negative); Nitrate Urine Negative (Negative); Non Pathogenic Casts 0-2; Protein Urine Negative (Negative); RBC Urine >100 /hpf (0-2); Specific Grav Ur 1.007 (1.001-1.035); Squamous Epithelial Cell Urine Occasional /hpf (Few); Urobilinogen Urine 0.2 mg/dL (<2.0); pH Urine 8.5 (5.0-9.0)
[2024-02-19 14:38] LABS: BEDSIDEPREGUCG Negative (Negative)
[2024-02-19] MEDS: SODIUM CHLORIDE 0.9% IV 1,000 ML 999 ML IV CONT (14:45)
[2024-02-19 15:30] LABS: Amphetamine Screen Urine Negative (Negative); Barbiturate Screen Urine Negative (Negative); Benzodiazepines Screen Urine Positive (Negative); Cannabinoid Screen Urine Positive (Negative); Cocaine Screen Urine Negative (Negative); Methadone Screen Urine Negative (Negative); Opiate Screen Urine Negative (Negative); Phencyclidine Screen Urine Negative (Negative)
--- NOTE | 2024-02-19 15:46 | PC.NURSE ---
pt became confrontational and combative with staff.
--- NOTE | 2024-02-19 17:12 | PC.NURSE ---
Crisis spoke with RN, pt denies any thoughts of SI. pt does not qualify for placement. pt was given back her belongings.
[2024-02-19] MEDS: NICOTINE (*PBKC) 14 MG PATCH 1 PATCH TRANSDERM (17:15)
--- NOTE | 2024-02-19 18:06 | PC.NURSE ---
Cab called for pt
== END 2024-02-19 18:15 | disposition home or self-care (01) ==
PROVIDERS: Emergency Provider Emergency Medicine
DX: R45.851 Suicidal ideations (principal); R45.4 Irritability and anger; R45.1 Restlessness and agitation; Z11.52 Encounter for screening for COVID-19; Z79.899 Other long term (current) drug therapy
CPT/HCPCS: 36415; 80053; 80143; 80179; 80307; 81001; 81025; 82077; 83735; 84443; 85025; 87637; 93005; 96360; 99284; A9270; J1630; J2060; J7030

== ENCOUNTER 2025-03-24 12:10 | Emergency (ER) | payer OTHER, SELFPAY ==
--- OUTSIDE RECORDS SUMMARY | 2025-03-24 12:13 | XMS_ITS | Clinical Summary ---
Author Organization [facility] Address [address] [address] Care Team Providers Care Stranding Machine Operator Name Role Phone Emil Sonali Brewer APRN-DIRECTOR OF PROCUREMENT Primary Care Provider Source Comments [facility],non-owned Affiliates and Associated Physician Practices is amultiple site organization consisting of ambulatory clinics and hospital sitesin [place], [place], [place] and [place]. This disclosure is being madepursuant to the Care Everywhere program and may not contain all information available regarding this patient. Last updated 17.[facility] Allergies No known active allergies Medications * This document contains information received from the source organization and may not represent a complete record from that organization. * Be aware that medications may not be up to date on this document. Alwaysverify current medications with the patient. 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 10/11/2018 Overview (10/14/2018): L lateral lower leg, proportional to somatic growth, asymptomatic 10/11/18 aesthetic concerns, no worrisome features; elective excision per Plastics; anticipatory guidance slow weight gain, Hx of weight loss 09/19/2009 Overview (09/19/2009): now at 10th %ile for age, was on 50th5 for age Attention deficit hyperactivity disorder (ADHD) 08/19/2009 Overview (02/16/2015): Resolved Problems Problem Noted Date Diagnosed Date Resolved Date Constipation 02/06/2015 Overview (01/09/2015): Constipation Family History * Patient is adopted Medical History Relation Name Comments ADHD Brother Mental Retardation Mother Relation Name Status Comments Brother Mother Social History Tobacco Use Types Packs/Day Years Used Date Smoking Tobacco: Every Day Cigarettes Smokeless Tobacco: Never Tobacco Cessation:Ready to Q uit: Not Asked; Counseling Given: Not Answered Alcohol Use Standard Drinks/Week Comments Yes 15 (1 standard drink = 0.6 oz pu re alcohol) PHQ-2 Answer Date Recorded Patient Health Questionnaire-2 Score 0 03/24/2023 Comments No Sex and Gender Information Value Date Recorded Sex Assigned at Not on file Legal Sex Female 6:43 AM [employer] Gender Identity Not on file Sexual Orientation Not on file Last Filed Vital Signs Vital Sign Reading Time Taken Comments Blood Pressure 105/53 03/24/2023 2:26 PM [employer] Pulse 71 03/24/2023 2:26 PM [employer] Temperature 36.8 C (98.3 F) 03/24/2023 2:26 PM [employer] Respiratory Rate 16 04/12/2019 2:30 PM [employer] Oxygen Saturation 99% 03/24/2023 2:26 PM [employer] Inhaled Oxygen Concentration 100% 04/12/2019 2 :15 PM [employer] Weight 53.5 kg (118 lb) 03/24/2023 2:26 PM [employer] Height 160 cm (5' 3) 03/24/2023 2:26 PM [employer] Body Mass Index 20.9 03/24/2023 2:26 PM [employer] Plan of Treatment Health Maintenance Due Date Last Done Comments HIV SCREENING 06/20/2018 HPV VACCINE (1 - 3-dose series) 06/20/2018 CHLAMYDIA/GONORRHEA SCREENING 2019 MENINGOCOCCAL (Group B) VACCINE SHARED DECISION-MAKING (1 of 2 - Standard) 2019 HEPATITIS C SCREENING 06/16/2021 DTAP/TDAP/TD VACCINES (1 - Tdap) 06/20/2022 HEPATITIS B VACCINE (1 of 3 - 19+ 3-dose series) 06/20/2022 PNEUMOCOCCAL VACCINE (1 of 2 - PCV) 06/20/2022 DEPRESSION SCREENING 04/11/2024 03/24/2023 PAP SMEAR 06/20/2024 COVID-19 VACCINE (3 - season) 2024 09/23/2020, 09/02/2020 INFLUENZA VACCINE (#1) 2024 9, 03/24/2017, 02/18/2016, Additional history exists ZOSTER VACCINE (1 of 2) 06/20/2053 HIB VACCINE Aged Out No longer eligi ble based on patient's age to complete this topic MENINGOCOCCAL GROUPS A/C/Y/W VACCINE Aged Out No longer eligible based on patient's age to complete this topic Insurance [place] [facility] MEDICAID - [facility] Care Teams Stranding Machine Operator Relationship Specialty Start Date End Date Sonali Stein APRN-ALBERT [address] [place] [id number] PCP - General Nurse Practitioner 03/24/23
--- OUTSIDE RECORDS SUMMARY | 2025-03-24 12:13 | XMS_ITS | Patient Health Record ---
Author Organization [facility] Address [address] [place] [address] Phone [phone] Care Team Providers Care Process Safety Specialist Name Role Phone Jojo Reese Primary Care Provider [phone] Allergies No Known Allergies Reason For Referral No Information Medications Medication SIG (Take, Route, Frequency, Duration) Notes Start Date End Date Diagnosis (ICD Code) Status Abilify 10 MG Tablet 1 tablet Orally Once a day Active hydrOXYzine Pamoate 25 MG Capsule 2 capsule at bedtime as needed Orally every 6 hours Not-Taking Multivitamin - Tablet 1 tablet Orally Once a day Active Nicoderm CQ 21 MG/24HR Patch 24 Hour 1 patch to skin Transdermal Once a day As needed Active Wellbutrin XL 150 MG Tablet Extended Release 24 Hour 1 tablet in the morning Orally Once a day Active Strattera 40 MG Capsule 1 capsule in the morning Orally Once a day Active Social History Tobacco Use: Social History Observation Description Date Details (start date - stop date) Current Smoker NA - NA Sex Observation Social History Observation Description Sex Observation Female SDOH Assessments Date Tool Assessment Assessment LOINC Value Assessment Notes Goals Interventions 08/29/19 24 PRAPARE (LOINC: 25285-2) Total Score: 1 Date Completed/Upda enrique: 08/24/19 24 PRAPARE Score: 1 Social History Social Determinants Social Info Question Answer Notes PRAPARE Date Completed/Updated: 08/24/2023 PRAPARE Score: 1 Miscellaneous Social Info Question Answer Notes Method of learning: Preferred method of learning: Reading,Demonstration Primary Social History Social Info Question Answer Notes Living Arrangement Living Arrangement: Dependent Katja duque Tobacco Use: Social Info Question Answer Notes Tobacco Control (Standard) Tobacco use: Current every day smoker Additional Findings: Tobacco user e-cigarette Problems Problem Type SNOMED Code ICD Code Dates Problem Status W/U Status Risk Notes Problem Tobacco user (236360260) Nicotine dependence, unspecified, uncomplicated (F17.200) Added On: 024 Active confirmed Problem Tobacco use (453112706) Tobacco use disorder (F17.200) Added On: 024 Active confirmed Plan Of Treatment No Information Insurance Providers Payer Name Payer Address Payer Phone Subscriber Number Group Number Insured Name Patient Relationship to Insured Coverage Start Date Coverage End Date [facility] [address] [place] [address] [id number] Sara Hawkins Self - patient is the insured Medical (General) History Hospitalization History Reason Date(Month/Year) pyelonephritis 07/2023
--- OUTSIDE RECORDS SUMMARY | 2025-03-24 12:13 | XMS_ITS | Clinical Summary ---
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 Floor Layer Name Role Phone None, Provider MD Primary Care Provider Unavaila ble Allergies No known active allergies Medications No known medications Active Problems Problem Noted Date Diagnosed Date Pyelonephritis 07/23/2023 Encounters Date Type Department Care Team Description 02/27/2025 7:58 AM PELLET POST INSPECTOR - 02/27/2025 11:59 PM [facility] Hospital Encounter [facility] Ultrasound [address] [place] [address] Rona Martinez MD Discharge Disposition: Home or Self Care (Routine Discharge) 02/27/2025 Travel from Last 3 Months Social History Tobacco Use Types Packs/Day Years Used Date Smoking Tobacco: Some Days Cigarettes Smokeless Tobacco: Never Tobacco Cessation:Ready to Q uit: Not Asked; Counseling Given: Not Answered Passive Exposure Comments:vapes Alcohol Use Standard Drinks/Week Comments Yes 5 (1 standard drink = 0.6 oz pur e alcohol) B1300 Health Literacy Answer Date Recor ded How often do you need to hav e someone help you when you read instructions, pamphlets, or other written material from your doctor or pharmacy? Never 07/21/2023 [facility] Utilities Answer Date Recorded In the past 12 months has th e electric, gas, oil, or water company threatened to shut off services in your home? No 07/21/2023 Humiliation, Afraid, Rape, and Kick questionnair e Answer Date Recorded Within the last year, have y ou been afraid of your partner or ex-partner? No 07/21/2023 Within the last year, have y ou been humiliated or emotionally abused in other ways by your partner or ex-partner? No Within the last year, have y ou been kicked, hit, slapped, or otherwise physically hurt by your partner or ex-partner? No 07/21/2023 Within the last year, have y ou been raped or forced to have any kind of sexual activity by your partner or ex-partner? No 07/21/2023 Social Connection and Isolation Panel Answer Date Recorded In a typical week, how many times do you talk on the phone with family, friends, or neighbors? More than three times a week 07/21/2023 How often do you get togethe r with friends or relatives? More than three times a week 07/21/2023 How often do you attend [facility] or church services? 1 to 4 times per year 07/21/2023 Active Member of Clubs or Organizations Not on f ile 07/21/2023 How often do you attend meet ings of the clubs or organizations you belong to? Never 07/21/2023 Are you , , di vorced, , never , or living with a partner? Never 07/21/2023 AUDIT-C Answer Date Recorded Q1: How often do you have a drink containing alc ohol? 2-4 times a month 07/21/2023 Q2: How many drinks containi ng alcohol do you have on a typical day when you are drinking? 3 or 4 07/21/2023 Q3: How often do you have si x or more drinks on one occasion? Less than monthly 07/21/2023 Overall Financial Resource Strain (CARDIA) Answe r Date Recorded How hard is it for you to pa y for the very basics like food, housing, medical care, and heating? Not hard at all 07/21/2023 PHQ-2 Answer Date Recorded Patient Health Questionnaire-2 Score 0 07/21/2023 [facility] [place] [facility] - Occupational Stress Questionnaire Answer Date Recorded Do you feel stress - tense, restless, nervous, or anxious, or unable to sleep at night because your mind is troubled all the time - these days? Not at all 07/21/2023 Exercise Vital Sign Answer Date Recorde d On average, how many days pe r week do you engage in moderate to strenuous exercise (like a brisk walk)? 2 days 07/21/2023 On average, how many minutes do you engage in exercise at this level? 20 min 07/21/2023 Hunger Vital Sign Answer Date Recorded Within the past 12 months, y ou worried that your food would run out before you got the money to buy more. Never true 07/21/19 24 Within the past 12 months, t he food you bought just didn't last and you didn't have money to get more. Never true 07/21/2023 PRAPARE - Transportation Answer Date Re corded In the past 12 months, has l ack of transportation kept you from medical appointments or from getting medications? No 07/10 In the past 12 months, has l ack of transportation kept you from meetings, work, or from getting things needed for daily living? No 07/21/2023 Housing Stability Vital Sign Answer Gama e Recorded In the last 12 months, was t here a time when you were not able to pay the mortgage or rent on time? No 07/21/2023 In the past 12 months, how m any times have you moved where you were living? 2 07/21/2023 At any time in the past 12 m [facility], were you homeless or living in a usp (including now)? No 07/21/2023 Comments Unknown Sex and Gender Information Value Date Recorded Sex Assigned at Not on file Legal Sex Female 12:20 PM CDT Gender Identity Not on file Sexual Orientation Not on file Last Filed Vital Signs Vital Sign Reading Time Taken Comments Blood Pressure 160/88 10/12/2023 2:10 PM CDT Pulse 88 10/12/2023 2:10 PM CDT Temperature 37 C (98.6 F) 10/12/2023 2:10 PM CDT Respiratory Rate 17 10/12/2023 2:10 PM CDT Oxygen Saturation 100% 10/12/2023 2:10 PM CDT Inhaled Oxygen Concentration - - Weight 52.2 kg (115 lb) 10/12/2023 10:41 AM CDT Height 160 cm (5' 3) 10/12/2023 10:41 AM CDT Body Mass Index 20.37 10/12/2023 10:41 AM CDT Plan of Treatment Upcoming Encounters Date Type Department Care Team (Late st Contact Info) Description 03/27/2025 8:00 AM PELLET POST INSPECTOR Appointment [facility] [address] [place], [place] [id number] Rona Martinez MD [address] [place] [address] Health Maintenance Due Date Last Done Comments Cervical Cancer Screening Pap Smear (Age 21 to 29) Every 3 Years 2003 Cervical Cancer Screening 2003 Annual Physical 06/20/2006 Pneumococcal Vaccine: Pediatrics (0 to 5 Years) and At-Risk Patients (6 to 49 Years) (1 of 1 - PPSV23, PCV20, or PCV21) 06/20/2009 05/12/2004, 03/02/2004, 2003 HPV Vaccines (1 - 3-dose series) 06/20/2018 Hepatitis C 06/20/2021 DTaP, Tdap and Td Vaccines (7 - Td or Tdap) 10/18/2024 10/18/2014, 06/27/2007, 09/30/2004, Additional history exists COVID-19 Vaccine ( season) 2024 09/23/2020, 09/02/2020 Influenza Adult (#1) 2025 02/16/2019, 03/24/2017, 02/18/2016, Additional history exists Hepatitis B Vaccines Completed 07/02/2004, 01/30/2004, 2003 Hepatitis A Vaccines Completed 07/11/2008, 06/27/19 08 Meningococcal Vaccine Completed 08/03/2019, 015 Meningococcal B Vaccine Completed 09/04/2019, 08/02 RSV Immunizations Under 20 Months Aged Out No longer eligible based on patient's age to complete this topic Procedures Procedure Name Priority Date/Time Associated Diagnosis Comments US OB COMP >14WKS TA+TV Routine 02/27/2025 9:17 AM PELLET POST INSPECTOR Encounter for screening, unspecified ([facility]) from Last 3 Months Results * US OB COMP >14WKS TA+TV (02/27/2025 9:17 AM PELLET POST INSPECTOR) Anatomical Region Laterality Modality Abdomen Ultrasound 02/27/2025 10:1 9 AM PELLET POST INSPECTOR Narrative 03/04/2025 8:29 AM PELLET POST INSPECTOR [facility] [address] [place] [address] IMAGING STUDIES: US OB COMP >14WKS TA+TV DATE: 02/27/2025 8:01 AM CLINICAL HISTORY: Encounter for screening, unspecified . FINDINGS: LMP: 09-03-2024 EDC By Clinician: 06-10-2025 COMBINED GA: 25w3d EDC By Present U/S: 06-09-2025 MEASUREMENTS BPD: 6.26cm 25w3d HC: 23.06cm 25w1d AC: 20.41cm 25w1d FL: 4.69cm 25w5d RATIOS CI: 77% 74-83 HC/AC: 1.13 1.09 - 1.26 FL/PBD: 75% FL/AC: 23% EST. WEIGHT: 789g +/- 115g, 1lbs. 12oz. +/- 4oz, EFW% 38% NUMBER: 1 PRESENTATION: vertex MOTION: Y CARDIAC MOTION: Y HEART RATE: 153bpm PLACENTA LOCATION: Anterior PLACENTA GRADE: 1 TA/TV CERVICAL LENGTH: 3.8cm CERVIX=>PLACENTA: 13.1cm MADDY (After 22 weeks): 16.21cm CORD INSERTION: Y INTRACRANIAL ANATOMY Y FOUR CHAMBER HEART: Y RVOT: Y LVOT: Y DIAPHRAGM: Y STOMACH: Y BLADDER: Y KIDNEYS: Y CERVICAL SPINE: Y THORACIC SPINE: Y LUMBAR SPINE: Y EXTREMITIES: L-limited due to position CORD VESSELS: Y LIPS/NOSE: Y Y=NORMAL A=ABNORMAL NV=NOT VISUALIZED PV=PREVIOUSLY IDENTIFIED L=LIMITED Ordered By: RONA MARTINEZ Interpreted By: Joanne Ackerman, 02/27/2025 10:19 AM Procedure Note David Ackerman MD - 03/04/2025 [facility] [address] [place] [address] IMAGING STUDIES: US OB COMP >14WKS TA+TV DATE: 02/27/2025 8:01 AM CLINICAL HISTORY: Encounter for screening, unspecified . FINDINGS: LMP: 09-03-2024 EDC By Clinician: 06-10-2025 COMBINED GA: 25w3d EDC By Present U/S: 06-09-2025 MEASUREMENTS BPD: 6.26cm 25w3d HC: 23.06cm 25w1d AC: 20.41cm 25w1d FL: 4.69cm 25w5d RATIOS CI: 77% 74-83 HC/AC: 1.13 1.09 - 1.26 FL/PBD: 75% FL/AC: 23% EST. WEIGHT: 789g +/- 115g, 1lbs. 12oz. +/- 4oz, EFW% 38% NUMBER: 1 PRESENTATION: vertex MOTION: Y CARDIAC MOTION: Y HEART RATE: 153bpm PLACENTA LOCATION: Anterior PLACENTA GRADE: 1 TA/TV CERVICAL LENGTH: 3.8cm CERVIX=>PLACENTA: 13.1cm MADDY (After 22 weeks): 16.21cm CORD INSERTION: Y INTRACRANIAL ANATOMY Y FOUR CHAMBER HEART: Y RVOT: Y LVOT: Y DIAPHRAGM: Y STOMACH: Y BLADDER: Y KIDNEYS: Y CERVICAL SPINE: Y THORACIC SPINE: Y LUMBAR SPINE: Y EXTREMITIES: L-limited due to position CORD VESSELS: Y LIPS/NOSE: Y Y=NORMAL A=ABNORMAL NV=NOT VISUALIZEDPV=PREVIOUSLY IDENTIFIED L=LIMITED Ordered By: RONA MARTINEZ Interpreted By: Joanne Ackerman, 02/27/2025 10:19 AM us Rona Martinez MD ULTRASOUND Final Resul t from Last 3 Months Insurance [facility] Advance Directives * Full Code (Latest Code Status on File) Date Activated Date Inactivated Comments 07/21/2023 4:54 PM 07/23/2023 12:51 PM Care Teams Mastic Floor Layer Relationship Specialty Start Date End Date None, Provider, PCP - General UNKNOWN PHYSICIAN SPECIALTY 07/21/23
--- OUTSIDE RECORDS SUMMARY | 2025-03-24 12:13 | XMS_ITS | Continuity of Care Document ---
Author Organization [facility], [id number] [facility] Address [address] [place] [address] Assessment No assessment recorded. Plan of Treatment Reminders Order Date Submit Date Provider Last Modified By Organization Details Last Modified Time Details Appointments Follow Up OB 15 2024 02:15P M SAHARA HOOD WHNP Not available Not available Not available Lab None recorded . Referral None recorded . Procedures None recorded . Surgeries None recorded . Imaging None recorded . Medication Orders None recorded . Patient TargetsNo targets recorded. Patient InstructionsNo instructions recorded. Reason for Referral None Reported. Results Created Date Observation Date Name Description Value Unit Range Abnormal Flag Note LastModifiedBy Organization Detail LastModifiedTime 02/15/2002/15/2025 CHLAM YDIA, GONOR RHOEA E, AND TRICH OMONA S trichomonas vaginalis, aptima (panther) NOT DETECT ED normal DNA testi ng perfo rmed by Trans cript ion [employer] enrique Ampli ficat ion (TMA) . Resul ts shoul d be inter prete d in conju nctio n with patie nt histo ry and clini mario alberto prese ntati on. This assay is highl y accur ate, but rare false posit josh and negat josh resul ts may occur . Posit josh resul ts in low preva lence popul ation s may requi re re-ev aluat ion. A negat josh resul t does not precl ude a possi ble infec tion due to a speci men inade quacy or sampl ing error . Test perfo rmed by [facility] d/b/a Jose diallo, [address], [place] [address] , Nicole Verma ra, DO, [facility] [place]# [id number] Not Available [facility] ([facility]) [address] [place] [address] [address], [place], [address], 02/15/2025 18:49:58 02/15/20 25 02/15/2025 CHLAM YDIA, GONOR RHOEA E, AND TRICH OMONA S neisseria gonorrhoeae, aptima NOT DETECT ED normal DNA testi ng perfo rmed by Trans cript ion [employer] enrique Ampli ficat ion (TMA) . Resul ts shoul d be inter prete d in conju nctio n with patie nt histo ry and clini mario alberto prese ntati on. This assay is highl y accur ate, but rare false posit josh and negat josh resul ts may occur . Posit josh resul ts in low preva lence popul ation s may requi re re-ev aluat ion. A negat josh resul t does not precl ude a possi ble infec tion due to a speci men inade quacy or sampl ing error . Test perfo rmed by [facility] d/b/a Path wilfred, [facility] [address], [place] [address] , Nicole Verma ra, DO, Labor atory [facility], CLIA# [id number] Not Available [facility] ([facility]) [address] [place] [address], [place], [address], 02/15/2025 18:49:58 02/15/20 25 02/15/2025 CHLAM YDIA, GONOR RHOEA E, AND TRICH OMONA S chlamydia trachomatis, aptima NOT DETECT ED normal DNA testi ng perfo rmed by Trans cript ion [employer] enrique Ampli ficat ion (TMA) . Resul ts shoul d be inter prete d in conju nctio n with patie nt histo ry and clini mario alberto prese ntati on. This assay is highl y accur ate, but rare false posit josh and negat josh resul ts may occur . Posit josh resul ts in low preva lence popul ation s may requi re re-ev aluat ion. A negat josh resul t does not precl ude a possi ble infec tion due to a speci men inade quacy or sampl ing error . Test perfo rmed by [facility] d/b/a Jose diallo, [address], [place] [address] , Nicole Verma ra, DO, Labor atory [facility], CLIA# [id number] Not Available [facility] ([facility]) [address], [place], [address], 02/15/2025 18:49:58 03/04/20 25 02/27/2025 US, obste tric No observ ation record ed. [email or web address] [facility] [address] [place], [address], 03/13/2025 09:36:05 Result Notes None recorded. Problems Name Problem SNOMED Code Status Onset Date Resolution Date Notes Provider Name and Address Organization Details Recorded Time 55275973 Active 2024 Alisia Mazariegos(term) null, [facility] 16:33:38 Autism spectrum disorder 25064261 Active 2024 Alisia Mazariegos(term) null, [place] - [facility] 16:42:08 History of manic depressiv e disorder 136678054 Active 2024 Codie kennedy null, [place] - [facility] 11:49:26 Maternal obesity complicat ing , childbirt h and the puerperiu m, antepartu m 589600687862 Active 2024 Melissa Cho null, [place] - [facility] 12:12:11 Late entry into care 303564200 Active 2024 Dated by second trimester US RONA PHAM MD [address], [place], [address], [facility] for [facility] 12:12:29 Edema 472733051 Active 2024 Melissa Cho [facility] for [facility] 16:40:19 Low back pain 040932138 Active 2024 Melissa Cho null, [facility] for [facility] 16:49:05 Problem Notes None recorded. Procedures Surgical History Date Name Laterality Status Provider Name and Address Organization Details Recorded Time 01/20/2025 Date of Last Pap Smear completed Alisia Mazariegos(term) [facility] for [facility] 02/07/2025 16:42:35 Imaging Results None recorded. Procedure Notes None recorded. Medical Equipment None Reported. Allergies Allergen ID Allergen Name Allergen Category Reaction Reaction Severity Criticality Documentation Date Start Date Code Code System Note Provider Name and Address Organization Details Recorded Time 995443 cat dander environme nt Not available Not available Not available 02/14/2025 Codie kennedy [facility], [facility] for [facility] 09:09:24 No known drug allergies Medications Name Sig Start Date Stop Date Status Note LastModified by Organization Details LastModified Time aripiprazole 10 mg tablet TAKE 1 TABLET BY MOUTH DAILY 02/07 completed Not Available Not Available Not Available nitrofuranto in monohydrate/ macrocrystal s 100 mg capsule TAKE 1 CAPSULE BY MOUTH EVERY 12 HOURS FOR 5 DAYS 02/07 completed Not Available Not Available Not Available calcium active Not Available Not Avail able Not Available iron active Not Available Not Availa ble Not Available Vitamin active Not Available Not Available Not Available Vitals Date Recorded Body height Body mass index (BMI) Body weight Systolic And Diastolic Provider Name and Address Organization Details Last Updated DateTime 03/13/2025 160.02 cm 23.4 kg/m2 95836.19 g 104/70 mm[Hg] Giana Arsen [facility] 03/13/2025 11:17:31 Social History Question Answer Notes LastModified by Organizat ion Details LastModified Time Tobacco Smoking Status Never Smoker Codie Walker [facility] 02/14/2025 09:09:40 Do You Have An Advance Directive? No Information not available 02/14/2025 If You Are , What Was Your Level Of Alcohol Consumption Prior To ? Moderate Information not available 02/14/2025 What Is Your Level Of Caffeine Consumption? Occasional Information not available 02/14/2025 What Type Of Diet Are You Following? REGULAR Information not available 02/14/2025 What Is Your Relationship Status? Single Information not available 02/14/2025 Sex: Female Functional Status Question Answer Note LastModified by Organization D etails LastModified Time What is your level of alcohol consumption? None Information not available 02/14/2025 Are you currently employed? No Information not available 02/14/2025 Mental Status None recorded. Family History Relationship Description Onset Age of this Age Resolved Age Notes LastModified by Organization Details LastModified Time Father Substance abuse bvoellinger Not available 09/2024 09:09:28 Father Mental disorder bvoellinger Not available 09/2024 09:09:28 Paternal Grandmother Substance abuse bvoellinger Not available 09/2024 09:09:28 Paternal Grandmother Mental disorder bvoellinger Not available 09/2024 09:09:28 Mother Depressive disorder bvoellinger Not available 09/2024 09:09:28 Mother Substance abuse bvoellinger Not available 09/2024 09:09:28 Mother Mental disorder bvoellinger Not available 09/2024 09:09:28 Unspecified Relation Depressive disorder bvoellinger Not available 09/2024 09:09:28 Maternal Grandmother Substance abuse bvoellinger Not available 09/2024 09:09:28 Maternal Grandmother Mental disorder bvoellinger Not available 09/2024 09:09:28 Maternal Grandfather Substance abuse bvoellinger Not available 09/2024 09:09:28 Maternal Grandfather Mental disorder bvoellinger Not available 09/2024 09:09:28 Paternal Grandfather Substance abuse bvoellinger Not available 09/2024 09:09:28 Paternal Grandfather Mental disorder bvoellinger Not available 09/2024 09:09:28 Medical History Condition Response Psych- Anxiety Disorder N Psych- Depression N Psych- Bipolar Disease N Gynecological History Statement/Question Response History of Endometriosis N History of PCOS N History of Fibroids N Date of LMP 09/07/2024 History of Infertility N Sexually Active? N History of Dysmenorrhea N History of Vulvar Dysplasia N History of Cervical Dysplasia N Date of Last Pap Smear 01/20/2025 History of Sexually Transmitted Infectio n N History of Recurrent Ovarian Cysts N Cologuard Testing N Obstetrics History GPAL:G 1 P 0 0 0 0 Type Value Living 0 Total 1 Immunizations Vaccine Type Date Status Note Provider Nam e and Address Organization Details Recorded Time Hep B, adolescent or pediatric 4 completed Not Available [facility] 03/13/2025 11:09:49 Pneumococcal conjugate PCV 13 4 completed Not Available [facility] 03/13/2025 11:09:49 DTaP, 5 pertussis antigens 4 completed Not Available [facility] 03/13/2025 11:09:49 IPV 4 completed Not Available [facility] 03/13/2025 11:09:49 Hib (PRP-T) 4 completed Not Available [facility] 03/13/2025 11:09:49 Hep B, adolescent or pediatric 4 completed Not Available [facility] 03/13/2025 11:09:49 Pneumococcal conjugate PCV 13 4 completed Not Available [facility] 03/13/2025 11:09:49 Hib (PRP-T) 4 completed Not Available [facility] 03/13/2025 11:09:49 DTaP, 5 pertussis antigens 4 completed Not Available [facility] 03/13/2025 11:09:49 IPV 4 completed Not Available [facility] 03/13/2025 11:09:49 Pneumococcal conjugate PCV 13 5 completed Not Available [facility] 03/13/2025 11:09:49 DTaP, 5 pertussis antigens 5 completed Not Available [facility] 03/13/2025 11:09:49 IPV 5 completed Not Available [facility] 03/13/2025 11:09:49 Hib (PRP-T) 5 completed Not Available [facility] 03/13/2025 11:09:49 varicella 5 completed Not Available [facility] 03/13/2025 11:09:49 MMR 5 completed Not Available [facility] 03/13/2025 11:09:49 Hep B, adolescent or pediatric 5 completed Not Available [facility] 03/13/2025 11:09:49 DTaP, 5 pertussis antigens 5 completed Not Available [facility] 03/13/2025 11:09:49 MMR 8 completed Not Available [facility] 03/13/2025 11:09:49 DTaP, 5 pertussis antigens 8 completed Not Available [facility] 03/13/2025 11:09:49 Hep A, ped/adol, 2 dose 8 completed Not Available [facility] 03/13/2025 11:09:49 varicella 9 completed Not Available [facility] 03/13/2025 11:09:49 IPV 9 completed Not Available [facility] 03/13/2025 11:09:49 Hep A, ped/adol, 2 dose 9 completed Not Available [facility] 03/13/2025 11:09:49 influenza, split (incl. purified surface antigen) 0 completed Not Available [facility] 03/13/2025 11:09:49 Influenza, split virus, trivalent, preservative 1 completed Not Available [facility] 03/13/2025 11:09:49 meningococcal MCV4P 5 completed Not Available [facility] 03/13/2025 11:09:49 Tdap 5 completed Not Available [facility] 03/13/2025 11:09:49 Influenza, split virus, quadrivalent, PF 6 completed Not Available [facility] 03/13/2025 11:09:49 Influenza, split virus, quadrivalent, PF 7 completed Not Available [facility] 03/13/2025 11:09:49 Influenza, split virus, quadrivalent, PF 9 completed Not Available [facility] 03/13/2025 11:09:49 meningococcal B, OMV 0 completed Not Available [facility] 03/13/2025 11:09:49 meningococcal MCV4P 0 completed Not Available [facility] 03/13/2025 11:09:49 meningococcal B, OMV 0 completed Not Available [facility] 03/13/2025 11:09:49 COVID-19, mRNA, LNP-S, PF, 30 mcg/0.3 mL dose 1 completed Not Available [facility] 03/13/2025 11:09:49 COVID-19, mRNA, LNP-S, PF, 30 mcg/0.3 mL dose 1 completed Not Available [facility] 03/13/2025 11:09:49 Past Encounters Encounter ID Performer Location Encounter Start Date Encounter Closed Date Diagnosis/Indication Diagnosis SNOMED-CT Code Diagnosis ICD10 Code Diagnosis IMO Codes Diagnosis Note [id number] RONA DRUMMOND RD, MD [id number] [facility] [address] [place] [address] [place] [address] 02/14/2025 11:35:42 02/14/2025 12:17:10 Amenorrhea 54572857 N91.0 Depression screening 171 046838 Z13.31 screening 2437 22792 Z36.9 Finding of 290 624528 Z39.1 147139 Low back pain 258702932 M54.59 [id number] RONA [address], MD [id number] [facility] [address] [place] [address] [place] [address] 03/13/2025 11:09:04 03/13/2025 11:32:26 Second trimester 66376986 Z34.02 [id number] Health Concerns Section Related Observation LastModified by Organization Detai ls LastModified Time None Recorded Concern Status LastModified by Organization Details LastModified Time None Recorded Payers Encounter Date Sequence Insurance Name Policy Number Policy Fields Covered Member ID Fields Member ID Guarantor Name 03/13/2025 1 OLEGARIO [id number] Yovani Hawkins [id number] Sara Hawkins OBGyn Episode Ob Episode Information Episode Created Date Number of Fetuses Patient Bloodtype Patient rh Status Prepregnancy Weight lbs Domestic Partner Domestic Partner Phone Father Name Polymerization 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 Operator Status 02/08/20 25 1 OPEN Fetus Data First Name Last Name Admitted to NICU Weight (g) Sex Living Outcome Pediatric Complications Fetus ID Race Codes Race Delivery Type [id number] Problems Problem Notes Problem Name Start Date End Date Resolution Snomed Code Not e Late entry into care 02/14/2025 [id number] Dated by florentin ba trimester US Michael Calculation Initial Michael Date Initial Exam Date Initial Exam Provider Initial Ultrasound Date Last Menstrual Period Date Ultra Sound Weeks Gestation 06/10/2025 02/07/2025 02/14/2025 09/07/2024 23 Eighteen To Twenty Week Michael Update Ultra Sound Date Fundal Height At Umbil Quickening Date Ultra Sound Latest Weeks Gestation Final Michael Confirmed By Final Michael Confirmed Date Final Michael Date Ultra Sound Latest Days Gestation 0 0 Pre- Flowsheet Flowsheet Date 02/14/2025 Mcginnis Score Blood Edema Fundus Height Fundus Units Glucose Ketones Leukocytes Nitrite Labor Signs Protein Cervic Dilation Cervic Effacement Cervic Station 24 cm Type Weight in lbs Pre/Post Dialysis Refused Weight 119.388176083250 BP Diastolic BP Location Tested BP Systolic BP Type 60 L arm 108 sitting Fetus Heart Rate Present Fetus Movement Comments Late care. Periods are irregular. Today was her first US. Flowsheet Date 03/13/2025 Mcginnis Score Blood Edema Fundus Height Fundus Units Glucose Ketones Leukocytes Nitrite Labor Signs Protein Cervic Dilation Cervic Effacement Cervic Station none 27 cm none none trace Type Weight in lbs Pre/Post Dialysis Refused Weight 132.117265945298 BP Diastolic BP Location Tested BP Systolic BP Type 70 104 Fetus Heart Rate Present A 150 Fetus Movement A Yes Comments rx/hx reviewed- pt here with partner- no interperter needed-pt reminded to do inital and 28 week labs - orders faxed to [facility], denies c/o. has not done initial labs or 28w labs yet. plans to schedule appt after visit to have done cherie. normal exam. -luz marina Menstrual History Last Menstrual Date Menses Monthly On Bcp Conception Prior Menses Frequency Hcg Plus Date Menarche Onset Age 0509/07/2024 Genetic Screening And Infection History Question Response Note Mental Retardation/Autism false pt is autistic Patient's Age Will Be 35 Yea rs Or Older At Estimated Date of Delivery false Thalassemia (Mongolian, Chilean, Mediterranean, Or Background): MCV < 80 false Neural Tube Defect (Meningom yelocele, Spina Bifida, Or Anencephaly) false Congenital Heart Defect false Down Syndrome false Tashi-Sachs (eg, Denominational, Cajun, Hungarian-[place]) f alse Vickey Disease false Sickle Cell Disease Or Trait () false Hemophilia Or Other Blood Disorders false Muscular Dystrophy false Cystic Fibrosis false [place]'s Ch[place] false Intellectual Disability/Autism true p t is autistic If Yes, Was Person Tested For Fragile X? false Other Inherited Genetic Or Chromosomal Disorder false Maternal Metabolic Disorder (eg, Type 1 Diabetes , PKU) false Patient Or Baby's Father Had A Child With Defects Not Listed Above false Recurrent Loss, Or A Stillbirth false Medications (including Suppl ements, Vitamins, Herbs, OTC Drugs), Illicit/Recreational Drugs, Alcohol true If Yes, Agent(s) And Strength/Dosage true pnv Any Other Genetic History false Live With Someone With TB Or Exposed To TB false Patient Or Partner Has History Of Genital Herpes false Rash Or Viral Illness Since Last Menstrual Perio d false History Of STD, Gonorrhea, Chlamydia, HPV, Syphi lis false Other Infection History false History of HIV false History of Hepatitis false Prior GBS-infected child false Hemoglobinopathy Or Carrier false Recent Travel History Outside of Country false Other Structural Defect false Delivery Information Delivery Date Delivery Type Labor Anesthesia Weeks Gestation Incision Type Labor Labor Length Hrs Delivered By Post Complications Tubal Sterilization Discharge Date Comments Discharge Information Feeding Method Contraceptive Method Maternal HG B and HCT Levels
--- OUTSIDE RECORDS SUMMARY | 2025-03-24 12:13 | XMS_ITS | Continuity of Care Document ---
Author Organization [facility], [id number] [facility] Address [address] [place] [address] Assessment No assessment recorded. Plan of Treatment Reminders Order Date Submit Date Provider Last Modified By Organization Details Last Modified Time Details Appointments Follow Up OB 15 2024 02:15P Hilario HOOD WHNP Not available Not available Not available Lab abo group + rh type, blood - Fax copy of result s to [facility]: [phone] 025 [facility] ([facility]), [address] [place] [address] [address], [place], [address], 02/14/2025 14:11:05 antibo dy screen , serum or plasma - Fax copy of result s to [facility]: [phone] 025 DEA [facility] ([facility]), [facility] [place] [address] Ata [address], [place], [address], 02/15/2025 11:09:49 CBC w/ diff - Fax copy of result s to [facility] [phone] 2024 025 [facility] ([facility]), [address] [place] [address] Ctr Ata [address], [place], [address], 02/14/2025 14:11:05 rubell a igg Ab screen , serum - Fax copy of result s to [facility]: [facility] 2024 025 [facility] ([facility]), [facility] Ctr Ata Garland, [place], [address], 02/14/2025 14:11:05 syphil is Ab, igg - Fax copy of result s to [facility]: [facility] 2024 025 [facility] ([facility]), [facility] Ctr Ata Garland, [place], [address], 02/14/2025 14:11:05 HIV 1+2 AB + HIV 1 p24 Ag, qualit ative immuno assay, serum - Fax copy of result s to [facility]: [facility] 2024 025 [facility]), [address] [place] [address] Ctr Ata Gar[address], [place], [address], 02/14/2025 14:11:05 HBsAg (hepat itis B surfac e Ag), serum - Fax copy of result s to [facility]: [facility] 2024 025 [facility]), [address] [place] [address] Ctr Ata Garland, [place], [address], 02/14/2025 14:11:05 Hepati tis C IgG Ab, qual, serum - Fax copy of result s to [facility]: [facility] [phone] 025 [facility] ([facility]), [address] [place] [address] Ata Garland, [place], [address], 02/14/2025 14:11:05 urinal ysis, comple te - Fax copy of result s to [facility]: [facility] 2024 025 [facility] ([facility]), [address] [place] [address] Ata Gar[address], [place], [address], 02/15/2025 11:10:22 cultur e, urine + sensit ivity - Fax copy of result s to [facility]: 8-[facility] 2024 025 [facility]), [address] [place] [address] Ata Gar[address], [place], [address], 02/14/2025 14:11:05 CT + NG + TV, DNA, urine/ swab - Fax copy of result s to [facility]: 618-[facility] 2024 025 [facility] ([facility]), [address] [place] [address] Ctr Ata Gar[address], [place], [address], 02/15/2025 18:49:58 glucos e tolera nce test, gestat ional, 1-hour 2024 025 [facility]), [address] [place] [address] Ctr Ata Gar[address], [place], [address], 02/14/2025 14:11:05 Referral None record ed. Procedures None record ed. Surgeries None record ed. Imaging US, obstet chandra - Anatom y Screen ing with Ranjith al Length JUANITA 2025 Fax copy of result s to [facility]: 2024 025 DEA [facility] ([facility]), [address], [place], [address], 03/04/2025 09:37:08 Medication Orders None record ed. Patient TargetsNo targets recorded. Patient Instructions Encounter Date Encounter Id Patient Instructions Last Modified By Organization Details Last Modified Time 02/14/2025 [id number] non-invasive testing information adollpollard Not available 02/14/2025 14:11:05 substance use and : care instructions adollpollard Not available 02/14/2025 14:11:05 Reason for Referral None Reported. Results Created Date Observation Date Name Description Value Unit Range Abnormal Flag Note LastModifiedBy Organization Detail LastModifiedTime 02/15/20 25 02/15/2025 CHLAM YDIA, GONOR RHOEA [...] logis ts, LLC d/b/a Jose diallo, [address], [facility] [place] [address] , Nicole Verma ra, DO, Labor atory [facility], CLIA# [id number] Not Available [facility] ([facility]) [address], [place], [address], 02/15/2025 18:49:58 02/15/20 25 02/15/2025 CHLAM YDIA, [...] rmed by [facility], [facility] d/b/a Jose diallo, [address] [place] [address], [place] [address] , Nicole Verma ra, DO, Labor atory [facility], [facility]# [id number] Not Available [facility] ([facility]) [address] [place] [address] Dr [address], [place], [address], 02/15/2025 18:49:58 02/15/20 25 02/15/2025 CHLAM YDIA, [...] [address], [place] [address] , Nicole Verma ra, DO, Labor at[facility], CLIA# [id number] Not Available [facility] ([facility]) [address], [place], [address], 02/15/2025 18:49:58 03/04/20 25 02/27/2025 US, obste tric No observ ation record ed. [email or web address] [facility] [address] [place], [address], 03/13/2025 09:36:05 Result Notes None recorded. Problems Name Problem SNOMED Code Status Onset Date Resolution Date Notes Provider Name and Address Organization Details Recorded Time 13679706 Active 2024 Alisia Mazariegos(term) null, [facility] 16:33:38 Autism spectrum disorder 93070770 Active 2024 Alisia Mazariegos(term) null, [facility] 16:42:08 History of manic depressiv e disorder 409420773 Active 2024 Codie kennedy null, MD - [facility] 11:49:26 Maternal obesity complicat ing , childbirt h and the puerperiu m, antepartu m 698960647594 Active 2024 Melissa Cho null, MD - [facility] 12:12:11 Late entry into care 991972447 Active 2024 Dated by second trimester US RONA PHAM MD [address] [facility] [address], [place], [address], [facility] for [facility] 12:12:29 Edema 638972769 Active 2024 Melissa Cho [facility] 16:40:19 Low back pain 307584324 Active 2024 Melissa Cho [facility] 16:49:05 Problem Notes None recorded. Procedures Surgical History Date Name Laterality Status Provider Name and Address Organization Details Recorded Time 01/20/2025 Date of Last Pap Smear completed Alisia Mazariegos(term) [facility] 02/07/2025 16:42:35 Imaging Results None recorded. Procedure Notes None recorded. Medical Equipment None Reported. Allergies Allergen ID Allergen Name Allergen Category Reaction Reaction Severity Criticality Documentation Date Start Date Code Code System Note Provider Name and Address Organization Details Recorded Time 972085 cat dander environme nt Not available Not available Not available 02/14/2025 Codie kennedy [facility] 09:09:24 No known drug allergies Medications Name [...] and Address Organization Details Last Updated DateTime 02/14/2025 160.02 cm 21.1 kg/m2 59587.21 g 108/60 mm[Hg] Codie Walker [facility] 02/14/2025 11:48:33 Social History Question Answer Notes LastModified by Organizat ion Details LastModified Time Tobacco Smoking Status Never Smoker Codie centeno [facility] 02/14/2025 09:09:40 Do You Have An Advance [...] adolescent or pediatric 4 completed Not Available [facility] 03/13/2025 11:09:49 Pneumococcal conjugate PCV 13 4 completed Not Available [facility] 03/13/2025 11:09:49 DTaP, 5 pertussis antigens 4 completed Not Available [facility] 03/13/2025 11:09:49 IPV 4 completed Not Available [facility] 03/13/2025 11:09:49 Hib (PRP-T) 4 completed Not Available [facility] 03/13/2025 11:09:49 Hep B, adolescent or pediatric 4 completed Not Available [facility] 03/13/2025 11:09:49 Pneumococcal conjugate PCV 13 4 completed Not Available [facility] 03/13/2025 11:09:49 Hib (PRP-T) 4 completed Not Available [facility] 03/13/2025 11:09:49 DTaP, 5 pertussis antigens 4 completed Not Available [facility] 03/13/2025 11:09:49 IPV 4 completed Not Available [facility] 03/13/2025 11:09:49 Pneumococcal conjugate PCV 13 5 completed Not Available [facility] 03/13/2025 11:09:49 DTaP, 5 pertussis antigens 5 completed Not Available [facility] 03/13/2025 11:09:49 IPV 5 completed Not Available [facility] 03/13/2025 11:09:49 Hib (PRP-T) 5 completed Not Available [facility] 03/13/2025 11:09:49 varicella 5 completed Not Available [facility] 03/13/2025 11:09:49 MMR 5 completed Not Available [facility] 03/13/2025 11:09:49 Hep B, adolescent or pediatric 5 completed Not Available [facility] 03/13/2025 11:09:49 DTaP, 5 pertussis antigens 5 completed Not Available [facility] 03/13/2025 11:09:49 MMR 8 completed Not Available [facility] 03/13/2025 11:09:49 DTaP, 5 pertussis antigens 8 completed Not Available [facility] 03/13/2025 11:09:49 Hep A, ped/adol, 2 dose 8 completed Not Available [facility] 03/13/2025 11:09:49 varicella 9 completed Not Available [facility] 03/13/2025 11:09:49 IPV 9 completed Not Available [facility] 03/13/2025 11:09:49 Hep A, ped/adol, 2 dose 9 completed Not Available [facility] 03/13/2025 11:09:49 influenza, split (incl. purified surface antigen) 0 completed Not Available [facility] 03/13/2025 11:09:49 Influenza, split virus, trivalent, preservative 1 completed Not Available [facility] 03/13/2025 11:09:49 meningococcal MCV4P 5 completed Not Available [facility] 03/13/2025 11:09:49 Tdap 5 completed Not Available [facility] 03/13/2025 11:09:49 Influenza, split virus, quadrivalent, PF 6 completed Not Available [facility] 03/13/2025 11:09:49 Influenza, split virus, quadrivalent, PF 7 completed Not Available [facility] 03/13/2025 11:09:49 Influenza, split virus, quadrivalent, PF 9 completed Not Available [facility] 03/13/2025 11:09:49 meningococcal B, OMV 0 completed Not Available [facility] 03/13/2025 11:09:49 meningococcal MCV4P 0 completed Not Available [facility] 03/13/2025 11:09:49 meningococcal B, OMV 0 completed Not Available [facility] 03/13/2025 11:09:49 COVID-19, mRNA, LNP-S, PF, 30 mcg/0.3 mL dose 1 completed Not Available [facility] 03/13/2025 11:09:49 COVID-19, mRNA, LNP-S, PF, 30 mcg/0.3 mL dose 1 completed Not Available [facility] 03/13/2025 11:09:49 Past Encounters Encounter ID Performer Location Encounter Start Date Encounter Closed Date Diagnosis/Indication Diagnosis SNOMED-CT Code Diagnosis ICD10 Code Diagnosis IMO Codes Diagnosis Note [id number] RONA DRUMMOND RD, MD [id number] [facility] [place] [address] [place] [address] 02/14/2025 11:35:42 02/14/2025 12:17:10 Amenorrhea 76439224 N91.0 Depression screening 171 820666 Z13.31 screening 2437 67296 Z36.9 Finding of 290 699221 Z39.1 334496 Low back pain 454680925 M54.59 [id number] Health Concerns Section Related Observation LastModified by Organization Detai ls LastModified Time None Recorded Concern Status LastModified by Organization Details LastModified Time None Recorded Payers Encounter Date Sequence Insurance Name Policy Number Policy Fields Covered Member ID Fields Member ID Guarantor Name 02/14/2025 1 OLEGARIO [id number] Yovani Hawkins [id number] Sara Hawkins Notes Date Note Type Note Provider Name and Address Organization Details Recorded Time 02/14/2025 text/html 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 Ultrasound if performed, showed estimated gestational age of 23 wks and 3 days.Final EDC determined to by 06/10/2025 based on US. OB history is significant for the following n/aPMH:Hypertension: noGestational diabetes: noDiabetes: noRheumatologic disorder (e.g. Lupus): noNeurologic disorder: noThyroid disease: noInfertility: noDVT/PE/APS: no She has been taking the following medications since her LMP: pnv, iron, and calcium.She has not be exposed to any toxins, chemicals or radiation since her LMP.She did not require fertility treatmentSince her LMP she has had the following symptoms including n/a Infection History:Patient or partner has history of genital herpes NoHistory of STD (GC, CT, HPV, syphilis, HIV) NoHistory of LEEP, cervical conization, cervical laser ablation or cervical cryosurgery NoLives with someone with TB or TB exposed NoRash or viral illness since LMP NoHave you received the flu vaccine this year noHave you received the COVID vaccine/booster this year no Other HistoryThere are not cats in the home.She has childhood varicella disease or chicken pox vaccine in the past.Have you ever received a blood transfusion NoWill you approve a blood transfusion in case of an emergency yes [place]PQC Screening ToolDo you feel unsafe in your relationship with your partner of with anyone in your environment? NoHave you ever had difficulties in your life due to alcohol or drugs including prescription drugs? NoDoes your partner, your friends or anyone else close to you have any problems with alcohol or drug use? yes, FOB has substance abuse issuesDo either of your parents have a history of any problems with alcohol or drug use?yes, pt parents use to be heavy drug usersSince your LMP have your used alcohol or drugs? yes, prior to pos hptSince your LMP have you smoked cigarettes, used tobacco products or vaped? yes, prior to pos hpt(If the patient answers YES to any of the above questions, additional screening and/or counseling might be appropriate) RONA MARTINEZ MD [address] [facility] [address], [place], [address], [facility] 02/14/2025 12:17:21 OBGyn Episode Ob Episode Information Episode Created Date Number of Fetuses Patient Bloodtype Patient rh Status Prepregnancy Weight lbs Domestic Partner Domestic Partner Phone Father Name Lamp Shade Maker Status 02/08/20 25 1 OPEN Fetus Data First Name Last Name Admitted to NICU Weight (g) Sex Living Outcome Pediatric Complications Fetus ID Race Codes Race Delivery Type [id number] Problems Problem Notes Problem Name Start Date End Date Resolution Snomed Code Not e Late entry into care 02/14/2025 [id number] Dated by florentin ba trimester US Juanita Calculation Initial Juanita Date Initial Exam Date Initial Exam Provider Initial Ultrasound Date Last Menstrual Period Date Ultra Sound Weeks Gestation 06/10/2025 02/07/2025 02/14/2025 09/07/2024 23 Eighteen To Twenty Week Juanita Update Ultra Sound Date Fundal Height At Umbil Quickening Date Ultra Sound Latest Weeks Gestation Final Juanita Confirmed By Final Juanita Confirmed Date Final Juanita Date Ultra Sound Latest Days Gestation 0 0 Pre-dick Flowsheet Flowsheet Date 02/14/2025 Mcginnis Score Blood Edema Fundus Height Fundus Units Glucose Ketones Leukocytes Nitrite Labor Signs Protein Cervic Dilation Cervic Effacement Cervic Station 24 cm Type Weight in lbs Pre/Post Dialysis Refused Weight 119.410871218339 BP Diastolic BP Location Tested BP Systolic [...] Weight in lbs Pre/Post Dialysis Refused Weight 132.044093162450 BP Diastolic BP Location Tested BP Systolic BP Type 70 104 Fetus Heart Rate Present A 150 Fetus Movement A Yes Comments rx/hx reviewed- pt here with partner- no interperter needed-pt reminded to do inital and 28 week labs - orders faxed to [employer] cmadoing well, denies c/o. has not done [...] At Estimated Date of Delivery false Thalassemia (Micronesian, Kyrgyz, Mediterranean, Or Background): MCV < 80 false Neural Tube Defect (Meningom yelocele, Spina Bifida, Or Anencephaly) false Congenital Heart Defect false Down Syndrome false Tashi-Sachs (eg, Oriental Orthodox, Cajun, Setswana-Denver) f alse Vickey Disease false Sickle Cell Disease Or Trait () false Hemophilia Or Other Blood Disorders false Muscular Dystrophy false Cystic Fibrosis false Pickens's Chorea false Intellectual Disability/Autism true p t [...]
[2025-03-24 12:23] VITALS: BP 96/46; PULSE 75; RESP 20; TEMP 36.4; O2SAT 100
--- NOTE | 2025-03-24 12:28 | PC.NURSE ---
This RN went into pts room and asked her if she would be okay with having an XR of the foot d/t . Pt said that she does not think that it is broken, therefore she does not want one. Pt has also already taken pain medications.
--- OUTSIDE RECORDS SUMMARY | 2025-03-24 13:00 | XMS_ITS | Clinical Summary ---
Author Organization [facility] Address [address] [place] [address] Care Team Providers Care Tailor Apprentice Name Role Phone None, Provider MD Primary Care Provider Unavaila ble Allergies No known active allergies Medications No known medications Active Problems Problem Noted Date Diagnosed Date Pyelonephritis 07/23/2023 Encounters Date Type Department Care Team Description 02/27/2025 7:58 AM BAG LOADER - 02/27/2025 11:59 PM [facility] [place] Hospital Encounter [facility] Ultrasound [address] [place] [address] Rona Martinez MD Discharge Disposition: Home or [...] from your doctor or pharmacy? Never 07/21/2023 [facility] Utilities Answer Date Recorded In the past [...] week 07/21/2023 How often do you [facility]? 1 to 4 times per year [...] Recorded Patient Health Questionnaire-2 Score 0 07/21/2023 [facility] [place] of Occupat ional Health - Occupational Stress [...] any time in the past 12 m [facility], were you homeless or living in a residential (including now)? No 07/21/2023 Comments Unknown Sex [...] st Contact Info) Description 03/27/2025 8:00 AM BAG LOADER Appointment [facility] [address] [place], [place] [id number] Rona Martinez MD [address] [place] [address] Health Maintenance Due Date Last [...] COMP >14WKS TA+TV Routine 02/27/2025 9:17 AM BAG LOADER Encounter for screening, unspecified ([facility]) from Last 3 Months Results * US OB COMP >14WKS TA+TV (02/27/2025 9:17 AM BAG LOADER) Anatomical Region Laterality Modality Abdomen Ultrasound 02/27/2025 10:1 9 AM BAG LOADER Narrative 03/04/2025 8:29 AM BAG LOADER [facility] [address] [place] [address] IMAGING STUDIES: US OB COMP >14WKS TA+TV [...] Ackerman, 02/27/2025 10:19 AM Procedure Note David cAkerman MD - 03/04/2025 [facility] [address] [place] [address] IMAGING STUDIES: US OB COMP >14WKS TA+TV [...] Resul t from Last 3 Months Insurance [facility] Advance Directives * Full Code (Latest Code Status on File) Date Activated Date Inactivated Comments 07/21/2023 4:54 PM 07/23/2023 12:51 PM Care Teams Tailor Apprentice Relationship Specialty Start Date End Date None, Provider, PCP - General UNKNOWN PHYSICIAN SPECIALTY 07/21/23
--- OUTSIDE RECORDS SUMMARY | 2025-03-24 13:00 | XMS_ITS | Data Portability ---
Author Organization [facility], [id number] [facility] Address [address] [place] [phone] Assessment No assessment recorded. Plan of Treatment Reminders Order Date Submit Date Provider Last Modified By Organization Details Last Modified Time Details Appointments Follow Up OB 15 2024 02:15P M SAHARA HOOD WHNP Not available Not available Not available Lab abo group + rh type, blood - Fax copy of result s to [facility] Depart ment: [phone] 2024 025 re[facility] ([facility]), [address] [place] [address] Ctr Ata Garland, [place], [address], 02/14/2025 14:11:05 antibo dy screen , serum or plasma - Fax copy of result s to [facility] Depart ment: [phone] 025 DEA [facility] ([facility]), [address] [place] [address] Ctr Ata Garland, [place], [address], 02/15/2025 11:09:49 CBC w/ diff - Fax copy of result s to [facility] Depart ment: [phone] 2024 025 rejipolla [facility] ([facility]), [address] [place] [address] Ctr Ata Garland, [place], [address], 02/14/2025 14:11:05 rubell a igg Ab screen , serum - Fax copy of result s to [facility] Depart ment: [facility]- 2024 025 [facility]), [address] [place] [address] Ctr , [place] [address], [place], [address], 02/14/2025 14:11:05 syphil is Ab, igg - Fax copy of result s to [facility] Depart ment: [facility] 2024 025 [facility]), [address] [place] [address] [facility] Monica, [place], [address], 02/14/2025 14:11:05 HIV 1+2 AB + HIV 1 p24 Ag, qualit ative immuno assay, serum - Fax copy of result s to [facility] Depart ment: [facility] 2024 025 [facility]), [address] [place] [address] [facility] Monica, [place], [address], 02/14/2025 14:11:05 HBsAg (hepat itis B surfac e Ag), serum - Fax copy of result s to [facility] Depart ment: [facility]- 2024 025 [facility]), [address] [place] [address] [facility] Monica, [place], [address], 02/14/2025 14:11:05 Hepati tis C IgG Ab, qual, serum - Fax copy of result s to [facility] Depart ment: [facility] 3 2024 025 [facility] ([facility]), [address] [place] [address] Ctr Ata Garland, [place], [address], 02/14/2025 14:11:05 urinal ysis, comple te - Fax copy of result s to [facility] Depart ment: 8-[facility]1173 2024 025 [facility] ([facility]), [address] [place] [address] Ctr Ata Garland, [place], [address], 02/15/2025 11:10:22 cultur e, urine + sensit ivity - Fax copy of result s to [facility] Depart ment: 618-[facility]1173 2024 025 [facility]), [address] [place] [address] Ctr Ata Garland, [place], [address], 02/14/2025 14:11:05 CT + NG + TV, DNA, urine/ swab - Fax copy of result s to [facility] Depart ment: [phone] 2024 025 [facility]), [address] [place] [address] Ctr Ata Garland, [place], [address], 02/15/2025 18:49:58 glucos e tolera nce test, gestat ional, 1-hour 2024 025 [facility] ([facility]), [address] [place] [address] Ctr Ata Garland, [place], [address], 02/14/2025 14:11:05 Referral None record ed. Procedures None record ed. Surgeries None record ed. Imaging US, obstet chandra - Anatom y Screen ing with Ranjith al Length JUANITA 2025 Fax copy of result s to [facility] Depart ment: 2024 025 DEA [facility] (Central Scheduling), [address], [place], [address], 03/04/2025 09:37:08 Medication Orders None record ed. Patient TargetsNo targets recorded. Patient Instructions Encounter Date Encounter Id Patient Instructions Last Modified By Organization Details Last Modified Time 02/14/2025 [id number] non-invasive testing information adollpollard Not available 02/14/2025 [...] ts, LLC d/b/a Jose diallo, [address], [facility] [place] [address] , Nicole Santoyo Bayron ra, DO, Labor atory Direc tor, CLIA# [id number] Not Available [facility] ([facility]) [address], [place], [address], 02/15/2025 18:49:58 02/15/20 25 02/15/2025 CHLAM YDIA, [...] rmed by [facility], [facility] d/b/a Path[facility] diallo, [facility] [address], [place] [address] , Nicole Verma ra, DO, Labor atory [facility], [facility]# [id number] Not Available [facility]) [address] [place] [address] [address], [place], [address], 02/15/2025 18:49:58 02/15/20 25 02/15/2025 CHLAM YDIA, [...] iated Path[facility] logis ts, [facility] d/b/a Jose wilfredlary, [address], [place] [address] , Nicole Santoyo Bayron ra, DO, Labor atory Direc tor, CLIA# [id number] Not Available [facility] ([facility]) [address], [place], [address], 02/15/2025 18:49:58 03/04/20 25 02/27/2025 US, obste tric No observ ation record ed. [email or web address] [facility] [address] [place], [address], 03/13/2025 09:36:05 Result Notes None recorded. Problems Name Problem SNOMED Code Status Onset Date Resolution Date Notes Provider Name and Address Organization Details Recorded Time 63943028 Active 2024 Alisia Mazariegos(term) null, [facility] 16:33:38 Autism spectrum disorder 03832155 Active 2024 Alisia Mazariegos(term) null, [facility] 16:42:08 History of manic depressiv e disorder 613415704 Active 2024 Codie kennedy null, [place] - [place] [facility] 11:49:26 Maternal obesity complicat ing , childbirt h and the puerperiu m, antepartu m 736340849256 Active 2024 Melissa Coh null, [facility] 5 12:12:11 Late entry into care 552749008 Active 2024 Dated by second trimester US RONA PHAM MD [address], [place], [address], [facility] 12:12:29 Edema 313911288 Active 2024 Melissa Cho [facility] 16:40:19 Low back pain 547205481 Active 2024 Melissa Cho [facility] 16:49:05 Problem Notes None recorded. Procedures Surgical History Date Name Laterality Status Provider Name and Address Organization Details Recorded Time 01/20/2025 Date of Last Pap Smear completed Alisia Mazariegos(term) [facility] 02/07/2025 16:42:35 Imaging Results None recorded. Procedure Notes None recorded. Medical Equipment None Reported. Allergies Allergen ID Allergen Name Allergen Category Reaction Reaction Severity Criticality Documentation Date Start Date Code Code System Note Provider Name and Address Organization Details Recorded Time 505009 cat dander environme nt Not available Not available Not available 02/14/2025 Codie kennedy [facility] 09:09:24 No known drug allergies Medications Name [...] Updated DateTime 02/14/2025 160.02 cm 21.1 kg/m2 60584.21 g 108/60 mm[Hg] Codie Walker [facility] 02/14/2025 11:48:33 Date Recorded Body height Body mass index (BMI) Body weight Systolic And Diastolic Provider Name and Address Organization Details Last Updated DateTime 03/13/2025 160.02 cm 23.4 kg/m2 59652.19 g 104/70 mm[Hg] Giana Leger [facility] 03/13/2025 11:17:31 Social History Question Answer Notes LastModified by Organizat ion Details LastModified Time Tobacco Smoking Status Never Smoker Codie Aaron centeno [facility] 02/14/2025 09:09:40 Do You Have An Advance [...] 09/2024 09:09:28 Medical History Condition Response Psych- Depression N Psych- Anxiety Disorder N Psych- Bipolar Disease N Gynecological History [...] adolescent or pediatric 4 completed Not Available [facility] 03/13/2025 11:09:49 Pneumococcal conjugate PCV 13 4 completed Not Available [facility] 03/13/2025 11:09:49 DTaP, 5 pertussis antigens 4 completed Not Available [facility] 03/13/2025 11:09:49 IPV 4 completed Not Available [facility] 03/13/2025 11:09:49 Hib (PRP-T) 4 completed Not Available [facility] 03/13/2025 11:09:49 Hep B, adolescent or pediatric 4 completed Not Available [facility] 03/13/2025 11:09:49 Pneumococcal conjugate PCV 13 4 completed Not Available [facility] 03/13/2025 11:09:49 Hib (PRP-T) 4 completed Not Available [facility] 03/13/2025 11:09:49 DTaP, 5 pertussis antigens 4 completed Not Available [facility] 03/13/2025 11:09:49 IPV 4 completed Not Available [facility] 03/13/2025 11:09:49 Pneumococcal conjugate PCV 13 5 completed Not Available [facility] 03/13/2025 11:09:49 DTaP, 5 pertussis antigens 5 completed Not Available [facility] 03/13/2025 11:09:49 IPV 5 completed Not Available [facility] 03/13/2025 11:09:49 Hib (PRP-T) 5 completed Not Available [facility] 03/13/2025 11:09:49 varicella 5 completed Not Available [facility] 03/13/2025 11:09:49 MMR 5 completed Not Available [facility] 03/13/2025 11:09:49 Hep B, adolescent or pediatric 5 completed Not Available [facility] 03/13/2025 11:09:49 DTaP, 5 pertussis antigens 5 completed Not Available [facility] 03/13/2025 11:09:49 MMR 8 completed Not Available [facility] 03/13/2025 11:09:49 DTaP, 5 pertussis antigens 8 completed Not Available [facility] 03/13/2025 11:09:49 Hep A, ped/adol, 2 dose 8 completed Not Available [facility] 03/13/2025 11:09:49 varicella 9 completed Not Available [facility] 03/13/2025 11:09:49 IPV 9 completed Not Available [facility] 03/13/2025 11:09:49 Hep A, ped/adol, 2 dose 9 completed Not Available [facility] 03/13/2025 11:09:49 influenza, split (incl. purified surface antigen) 0 completed Not Available [facility] 03/13/2025 11:09:49 Influenza, split virus, trivalent, preservative 1 completed Not Available [facility] 03/13/2025 11:09:49 meningococcal MCV4P 5 completed Not Available [facility] 03/13/2025 11:09:49 Tdap 5 completed Not Available [facility] 03/13/2025 11:09:49 Influenza, split virus, quadrivalent, PF 6 completed Not Available [facility] 03/13/2025 11:09:49 Influenza, split virus, quadrivalent, PF 7 completed Not Available [facility] 03/13/2025 11:09:49 Influenza, split virus, quadrivalent, PF 9 completed Not Available [facility] 03/13/2025 11:09:49 meningococcal B, OMV 0 completed Not Available [facility] 03/13/2025 11:09:49 meningococcal MCV4P 0 completed Not Available [facility] 03/13/2025 11:09:49 meningococcal B, OMV 0 completed Not Available [facility] 03/13/2025 11:09:49 COVID-19, mRNA, LNP-S, PF, 30 mcg/0.3 mL dose 1 completed Not Available [facility] 03/13/2025 11:09:49 COVID-19, mRNA, LNP-S, PF, 30 mcg/0.3 mL dose 1 completed Not Available [facility] 03/13/2025 11:09:49 Past Encounters Encounter ID Performer Location Encounter Start Date Encounter Closed Date Diagnosis/Indication Diagnosis SNOMED-CT Code Diagnosis ICD10 Code Diagnosis IMO Codes Diagnosis Note [id number] RONA DRUMMOND RD, MD [id number] [facility] J[facility] [address] [place] [address] [place] [address] 02/14/2025 11:35:42 02/14/2025 12:17:10 Amenorrhea 99981020 N91.0 Depression screening 171 124055 Z13.31 screening 2437 43761 Z36.9 Finding of 290 040210 Z39.1 583070 Low back pain 787541492 M54.59 [id number], MD [id number] [facility] J[facility] [address] [facility] [place] [address] 03/13/2025 11:09:04 03/13/2025 11:32:26 Second trimester 69551444 Z34.02 [id number] Health Concerns Section Related Observation LastModified by Organization Detai ls LastModified Time None Recorded Concern Status LastModified by Organization Details LastModified Time None Recorded Advance Directives Directive N: Payers Insurance Date Sequence Insurance Name Policy Number Policy Fields Covered Member ID Fields Member ID Guarantor Name 02/14/2025 1 [facility] [id number] Yovani Hawkins [id number] Sara Hawkins 03/11/2025 1 [facility] [id number] Yovani Hawkins [id number] Sara Hawkins Notes Date Note Type Note Provider Name and Address Organization Details Recorded Time 02/14/2025 text/html CONFIRMATION VISITSOGA Bioanalyst present per SOGA Policy Patient is a 19 year old [...] might be appropriate) RONA MARTINEZ MD [address], [place], [address], [facility] 02/14/2025 12:17:21 OBGyn Episode Ob Episode Information Episode Created Date Number of Fetuses Patient Bloodtype Patient rh Status Prepregnancy Weight lbs Domestic Partner Domestic Partner Phone Father Name Global Supply Chain Vice President Status 02/08/20 25 1 OPEN Fetus Data First Name Last Name Admitted to NICU Weight (g) Sex Living Outcome Pediatric Complications Fetus ID Race Codes Race Delivery Type [id number] Problems Problem Notes Problem Name Start Date End Date Resolution Snomed Code Not e Late entry into care 02/14/2025 [id number] Dated by florentin esquivel US Juanita Calculation Initial Juanita Date Initial [...] Weight in lbs Pre/Post Dialysis Refused Weight 119.496865239729 BP Diastolic BP Location Tested BP Systolic [...] Weight in lbs Pre/Post Dialysis Refused Weight 132.167990877839 BP Diastolic BP Location Tested BP Systolic BP Type 70 104 Fetus Heart Rate Present A 150 Fetus Movement A Yes Comments rx/hx reviewed- pt here with partner- no interperter needed-pt reminded to do inital and 28 week labs - orders faxed to [facility] well, denies c/o. has not done [...] At Estimated Date of Delivery false Thalassemia (Mohawk, Malian, Mediterranean, Or Background): MCV < 80 false Neural Tube Defect (Meningom yelocele, Spina Bifida, Or Anencephaly) false Congenital Heart Defect false Down Syndrome false Tashi-Sachs (eg, Hinduism, Cajun, Georgian-[place]wan River) f alse Vickey Disease false Sickle Cell Disease Or Trait () false Hemophilia Or Other Blood Disorders false Muscular Dystrophy false Cystic Fibrosis false Neosho's Chorea false Intellectual Disability/Autism true p t [...]
--- OUTSIDE RECORDS SUMMARY | 2025-03-24 13:01 | XMS_ITS | Clinical Summary ---
Author Organization [facility] [employer] Address [address] [place] [address] Care Team Providers Care Environmental Field Technician Name Role Phone Emil Sonali Brewer APRN-SWITCHMAN Primary Care Provider Source Comments [facility],non-owned Affiliates and Associated Physician Practices is amultiple site organization consisting of ambulatory clinics and hospital sitesin [place], [place], [place] and [place]. This disclosure is being madepursuant to the Care Everywhere program and may not contain all information available regarding this patient. Last updated 17.[facility] [employer] Allergies No known active allergies Medications * [...] on file Legal Sex Female 6:43 AM FIREARMS INSPECTOR Gender Identity Not on file Sexual Orientation Not on file Last Filed Vital Signs Vital Sign Reading Time Taken Comments Blood Pressure 105/53 03/24/2023 2:26 PM FIREARMS INSPECTOR Pulse 71 03/24/2023 2:26 PM FIREARMS INSPECTOR Temperature 36.8 C (98.3 F) 03/24/2023 2:26 PM FIREARMS INSPECTOR Respiratory Rate 16 04/12/2019 2:30 PM FIREARMS INSPECTOR Oxygen Saturation 99% 03/24/2023 2:26 PM FIREARMS INSPECTOR Inhaled Oxygen Concentration 100% 04/12/2019 2 :15 PM FIREARMS INSPECTOR Weight 53.5 kg (118 lb) 03/24/2023 2:26 PM FIREARMS INSPECTOR Height 160 cm (5' 3) 03/24/2023 2:26 PM FIREARMS INSPECTOR Body Mass Index 20.9 03/24/2023 2:26 PM FIREARMS INSPECTOR Plan of Treatment Health Maintenance Due Date [...] Insurance [place] [facility] MEDICAID - [facility] [place] Care Teams Environmental Field Technician Relationship Specialty Start Date End Date Sonali Stein APRN-ALBERT [address] [place] [phone] PCP - General Nurse Practitioner 03/24/23
[2025-03-24 13:05] VITALS: BP 105/62; PULSE 68; RESP 16; O2SAT 98
--- NOTE | 2025-03-24 16:02 | ED.FALL ---
HPI - Fall General Chief Complaint: Fall Stated Complaint: FALL DOWN 2 STEPS 29WKS PREG, L ANKLE INJURY Time Seen by Provider: 03/24/25 12:43 History of Present Illness HPI Narrative: Patient event 29 weeks , she slipped on some stairs and twisted her left ankle, screened at the time and was unable to bear weight however is now better, initially came in here thinking of getting an x-ray but now no longer wants it. Does not report hitting her head her neck, no abdominal pain or trauma to her abdomen or back, no vaginal bleeding or loss of fluid. Did take some Tylenol prior to arrival here. Related Data Home Medications ?Medication ?Instructions ?Recorded ?Confirmed ?Last Taken ?Type bupropion HCl 100 mg tablet,12 hr 100 mg PO DAILY 01/17/21 02/15/24 Unknown History sustained-release aripiprazole 10 mg tablet 10 mg PO DAILY 02/15/24 02/15/24 Unknown History Allergies Allergy/AdvReac Type Severity Reaction Status Date / Time cefdinir AdvReac Intermediate Diarrhea Verified 03/24/25 12:11 Review of Systems Review of Systems: All systems reviewed & are unremarkable except as noted in HPI and below [facility] Past Medical History Medical History Outbursts of anger Social History Social History Smoking status: Never smoker Substance use type: marijuana Exam Narrative: EXAMINATION OF ORGAN SYSTEMS/BODY AREAS: Constitutional: Vital signs per nursing GENERAL:No acute distress, non-toxic appearing. HEAD: Normal with no signs of head trauma. EYES: EOMI, conjunctiva normal ENT: Hearing grossly intact LUNGS: Nonlabored breathing. HEART: Regular rate and rhythm, normal DP pulse ABD: Soft, nontender to palpation EXT: Normal range of motion, some slight tenderness and swelling to the left lateral malleolus SKIN: See above NEURO: Alert. No gross focal sensory or strength deficits. PSYCH: Normal affect Course Vital Signs Vital signs: Vital Signs Temperature 97.6 F 03/24/25 12:23 Pulse Rate 75 03/24/25 12:23 Respiratory Rate 20 03/24/25 12:23 Blood Pressure 96/46 L 03/24/25 12:23 Pulse Oximetry 100 03/24/25 12:23 Temperature 97.6 F 03/24/25 12:23 Pulse Rate 68 03/24/25 13:05 Respiratory Rate 16 03/24/25 13:05 Blood Pressure 105/62 03/24/25 13:05 Pulse Oximetry 98 03/24/25 13:05 MDM MDM Narrative Medical decision making narrative: MEDICAL DECISION MAKING AND COURSE IN THE ED WITH INTERPRETATION/REVIEW OF DIAGNOSTIC STUDIES: Electronic medical record was reviewed. This patient was seen by myself. Patient presented to the ED with complaint of left ankle pain after twisting a when she tripped on stairs, she is not having any pain anywhere else, did not injure anything else.. Vitals [were within acceptable limits]. Physical exam revealed tenderness at left lateral malleolus, she is also gravid but abdomen is soft nontender. I do not see any obvious deformity, she is neurovascularly intact, some slight swelling to the left lateral malleolus. Did offer x-rays, which shielding of her abdomen and counseled her on the low radiation risk, patient at this time would opt to avoid x-rays of possible which I feel is appropriate given my low concern for fracture, and regardless if it is a distal fibular fracture, would be treated similarly to a bad sprain. SEVERO wrap applied to injured extremity. Patient given strict return precautions if pain is worse or there is poor blood flow to the extremity, or if she changes her mind and would like to get x-rays, and advised to rest the limb and to followup with orthopedics as needed. Differential Diagnosis Differential Diagnosis: Sprain, fracture Discharge Plan Discharge Clinical Impression: Ankle injury Patient Disposition: Home Condition: Stable Instructions: Ankle Sprain (ED) Additional Instructions: You did decline xrays today; you can follow up with foot/ankle if your pain persists in a few days, or if you change your mind or things worsen you can come back to the ER. Try to avoid putting weight on your left foot, keep it propped up, Severo wrap, ice. Patient Language: Nepali Prescriptions: No Action bupropion HCl 100 mg tablet sustained-release 12 hr 100 mg PO DAILY aripiprazole 10 mg tablet 10 mg PO DAILY aripiprazole [Abilify] 10 mg tablet 10 mg PO DAILY Qty: 30 0RF nitrofurantoin monohyd/m-cryst [Macrobid] 100 mg capsule 100 mg PO Q12H 5 Days Qty: 10 0RF Rx Instructions: must administer with a meal/food Follow-up/Referrals: UNKNOWN,DOCTOR [Non-Staff]
== END 2025-03-24 13:07 | disposition home or self-care (01) ==
PROVIDERS: Emergency Provider Emergency Medicine
DX: O9A.213 Injury, poisoning and certain other consequences of external causes complicating pregnancy, third trimester (principal); S99.912A Unspecified injury of left ankle, initial encounter; Z3A.29 29 weeks gestation of pregnancy; W10.9XXA Fall (on) (from) unspecified stairs and steps, initial encounter
CPT/HCPCS: 99282